=== PATIENT | female | born 1930 | race Caucasian/White ===

== ENCOUNTER 2016-12-11 14:13 | Inpatient (IN) | payer OTHER ==
[2016-12-11 15:24] LABS: BASOPHIL 0.7 % (0-2.0); MCH 29.7 pg (25.7-33.7); MCHC 33.1 g/dl (32.0-36.0); MEAN CELL VOLUME 89.6 fl (80-96); MEAN PLT VOLUME 9.5 fl (7.5-11.1); NEUTROPHILS 70.3 % (42.8-82.8); PLATELET COUNT 117 K/MM3 (134-434); RDW 14.9 % (11.6-15.6); WHITE BLOOD COUNT 6.7 K/mm3 (4.0-10.0)
--- NOTE | 2016-12-11 15:28 | PDOC ---
History of Present Illness - General History Source: Patient, Family - History of Present Illness Initial Comments: 12/11/16 15:34 86 y/o F with a PMHx of DM, asthma, CVA, dementia, thyroid disease, and depression presents to the ED with bilateral lower leg weakness. Per daughter, patient was with her aide and was near syncope. She complains of bilateral knee pain and abrasions. Patients daughter reports the patient has a history of UTIs. Denies fever, chills, nausea, vomiting, diarrhea. PCP: Dr. Barajas Neurologist: Dr. Vee Past Surgeries: right knee, right ankle <Jolene Hernandez - Last Filed: 12/11/16 15:34> <Hafsa Adams - Last Filed: 12/12/16 20:26> - General Chief Complaint: Syncope/Near Syncope Stated Complaint: SYNCOPY Time Seen by Provider: 12/11/16 14:41 Past History <Jolene Hernandez - Last Filed: 12/11/16 15:34> - Past Medical History Anemia: No Asthma: Yes Cancer: No Cardiac Disorders: Yes (BLOOD CLOTS) CVA: Yes COPD: No CHF: No Dementia: Yes Diabetes: Yes (NIIDM) GI Disorders: Yes (CONSTIPATION, HX OF DUODENAL ULCER) Disorders: No HTN: No Hypercholesterolemia: No Liver Disease: No Suicide Attempt (Hx): No Seizures: No Thyroid Disease: Yes - Surgical History Abdominal Surgery: No Appendectomy: No Cardiac Surgery: Yes (FILTER FOR BLOOD CLOTS TO LEFT GROIN) Cholecystectomy: No Lung Surgery: No Neurologic Surgery: No Orthopedic Surgery: Yes (RT LEG SURGERY FROM FALL) - Psycho/Social/Smoking Cessation Hx Anxiety: No Suicidal Ideation: No Smoking Status: No Smoking History: Never smoked Have you smoked in the past 12 months: No Number of Cigarettes Smoked Daily: 0 Information on smoking cessation initiated: No Hx Alcohol Use: No Drug/Substance Use Hx: No Substance Use Type: None Hx Substance Use Treatment: No <Hafsa Adams - Last Filed: 12/12/16 20:26> - Past Medical History Allergies/Adverse Reactions: Allergies Allergy/AdvReac Type Severity Reaction Status Date / Time egg [Egg] Allergy Mild Hives Verified 12/11/16 14:52 Egg Derived [Egg/Poultry] Allergy Verified 12/11/16 14:52 Home Medications: Ambulatory Orders Atorvastatin Ca [Lipitor] 40 mg PO HS 03/17/13 Levothyroxine [Synthroid -] 62.5 mcg PO DAILY 03/17/13 Metformin HCl [Glucophage -] 500 mg PO DAILY 03/17/13 Olanzapine [Olanzapine Odt] 1.25 mg PO DAILY 03/17/13 Omeprazole [Prilosec (RX)] 20 mg PO DAILY 03/17/13 Polyethylene Glycol 3350 [Miralax 255 gm Btl -] 17 gm PO DAILY 03/17/13 Ammonium Lactate Lotion [Lac-Hydrin 12] 1 applic TP ASDIR 12/11/16 Clotrimazole [Lotrimin -] 1 applic TP DAILY 12/11/16 Meclizine HCl 12.5 mg PO DAILY 12/11/16 Memantine HCl 10 mg PO DAILY 12/11/16 Oxybutynin Chloride 5 mg PO DAILY 12/11/16 Warfarin Sodium [Coumadin] 3 mg PO HS 12/11/16 Docusate Sodium [Colace -] 100 mg PO DAILY #30 capsule 12/12/16 Sennosides [Senna] 8.6 mg PO HS #30 tablet 12/12/16 Review of Systems - Review of Systems Comments:: 12/11/16 15:34 GENERAL/CONSTITUTIONAL: No fever or chills. HEAD, EYES, EARS, NOSE AND THROAT: No change in vision. No ear pain or discharge. No sore throat. CARDIOVASCULAR: No chest pain or shortness of breath. RESPIRATORY: No cough, wheezing, or hemoptysis. GASTROINTESTINAL: No nausea, vomiting, diarrhea or constipation. GENITOURINARY: No dysuria, frequency, or change in urination. MUSCULOSKELETAL: (+) bilateral knee pain. No neck or back pain. SKIN: (+) bilateral knee abrasions. No rash NEUROLOGIC: (+) bilateral lower leg weakness, near syncope. No headache, vertigo. ENDOCRINE: No increased thirst. No abnormal weight change. HEMATOLOGIC/LYMPHATIC: No anemia, easy bleeding, or history of blood clots. ALLERGIC/IMMUNOLOGIC: No hives or skin allergy. <Jolene Hernandez - Last Filed: 12/11/16 15:34> *Physical Exam - Vital Signs Last Vital Signs Temp Pulse Resp BP Pulse Ox 65 18 99/55 98 12/11/16 15:33 12/11/16 15:33 12/11/16 15:33 12/11/16 15:33 <Jolene Hernandez - Last Filed: 12/11/16 15:34> - Vital Signs Last Vital Signs Temp Pulse Resp BP Pulse Ox 74 18 99/50 92 L 12/11/16 14:42 12/11/16 14:42 12/11/16 14:42 12/11/16 14:42 - Physical Exam Comments: GENERAL: Awake, alert, and fully oriented, in no acute distress HEAD: No signs of trauma EYES: PERRLA, EOMI, sclera anicteric, conjunctiva clear ENT: Auricles normal inspection, hearing grossly normal, nares patent, oropharynx clear without exudates. Moist mucosa NECK: Normal ROM, supple, no lymphadenopathy, JVD, or masses LUNGS: Breath sounds equal, clear to auscultation bilaterally. No wheezes, and no crackles HEART: Regular rate and rhythm, normal S1 and S2, no murmurs, rubs or gallops ABDOMEN: Soft, nontender, normoactive bowel sounds. No guarding, no rebound. No masses EXTREMITIES: +Abrasions to the B/L anterior knees. Slight LCL laxity on the R side. Remainder of extremities with normal range of motion, no edema. No clubbing or cyanosis. No cords, erythema, or tenderness NEUROLOGICAL: Cranial nerves II through XII grossly intact. Normal speech. Motor and sensation intact. SKIN: Warm, Dry, normal turgor, no rashes or lesions noted. <Hafsa Adams - Last Filed: 12/12/16 20:26> ED Treatment Course - LABORATORY CBC & Chemistry Diagram: 12/11/16 15:16 12/11/16 15:16 - ADDITIONAL ORDERS Additional order review: 12/11/16 15:16 RBC 3.90 MCV 89.6 MCHC 33.1 RDW 14.9 MPV 9.5 Neutrophils % 70.3 Lymphocytes % 18.8 D Monocytes % 8.2 Eosinophils % 2.0 Basophils % 0.7 <Jolene Hernandez - Last Filed: 12/11/16 15:34> - LABORATORY CBC & Chemistry Diagram: 12/12/16 06:00 12/12/16 06:00 - RADIOLOGY Radiology Studies Ordered: Category Date Time Status CHEST X-RAY PORTABLE* [RAD] Stat Radiology 12/11/16 14:47 Ordered <Hafsa Adams - Last Filed: 12/12/16 20:26> Medical Decision Making - Medical Decision Making 12/11/16 17:[address] Campbell, awaiting UA. Will plan for admission to [facility] for syncope. <Hafsa Adams - Last Filed: 12/12/16 20:26> *DC/Admit/Observation/Transfer - Attestations Scribe Attestion: 12/11/16 15:35 Documentation prepared by Jolene Hernandez, acting as medical delivery technician for Hafsa Adams. <Jolene Hernandez - Last Filed: 12/11/16 15:34> <Hafsa Adams - Last Filed: 12/12/16 20:26> Diagnosis at time of Disposition: Syncope Qualifiers: Syncope type: unspecified Qualified Code(s): R55 - Syncope and collapse - Discharge Dispostion Disposition: HOME Condition at time of disposition: Stable - Prescriptions
[2016-12-11 15:41] LABS: INR 3.66 (0.82-1.09); PROTHROMBIN TIME (PATIENT) 41.3 SEC (9.98-11.88)
[2016-12-11 15:54] LABS: ALBUMIN 3.4 g/dl (3.4-5.0); ANION GAP 9 (8-16); CALCIUM 7.8 mg/dL (8.5-10.1); CO2 27 mmol/L (21-32); GLUCOSE,RANDOM 105 mg/dL (74-106); SGOT/AST 19 U/L (15-37); SGPT/ALT 26 U/L (12-78)
[2016-12-11 15:58] LABS: ALK PHOS 76 U/L (45-117); BILIRUBIN,TOTAL 0.8 mg/dL (0.2-1.0); CPK 131 IU/L (26-192); TOT PROT 6.3 g/dl (6.4-8.2); TROPONIN I 0.02 ng/ml (0.00-0.05)
[2016-12-11 16:51] LABS: URINE APPEARANCE CLEAR; URINE BILIRUBIN NEGATIVE (NEGATIVE); URINE BLOOD NEGATIVE (NEGATIVE); URINE COLOR STRAW; URINE GLUCOSE (UA) NEGATIVE (NEGATIVE); URINE KETONE NEGATIVE (NEGATIVE); URINE LEUK ESTERASE NEGATIVE (NEGATIVE); URINE NITRITE NEGATIVE (NEGATIVE); URINE PROTEIN NEGATIVE (NEGATIVE); URINE UROBILINOGEN NEGATIVE mg/dL (0.2-1.0)
[2016-12-11] MEDS ORDERED: SODIUM CHLORIDE 1,000 ML IV STA (17:00)
[2016-12-11] MEDS ORDERED: ALBUTEROL SO4 2.5/IPRATROPIUM 0.5 INH SOL 3 ML VIAL.NEB. NEB ONE ×2 (19:43→20:33)
--- NOTE | 2016-12-11 19:59 | PDOC ---
*Physical Exam - Vital Signs Last Vital Signs Temp Pulse Resp BP Pulse Ox 97.9 F 89 26 H 113/70 98 12/11/16 18:46 12/11/16 19:50 12/11/16 19:50 12/11/16 19:50 12/11/16 19:50 ED Treatment Course - LABORATORY CBC & Chemistry Diagram: 12/11/16 15:16 12/11/16 15:16 - ADDITIONAL ORDERS Additional order review: Laboratory Results 12/11/16 12/11/16 12/11/16 16:35 15:16 15:16 INR 3.66 H D Sodium 142 Potassium 4.2 Chloride 106 Carbon Dioxide 27 Anion Gap 9 BUN 17 Creatinine 1.0 Creat Clearance w eGFR 52.45 Random Glucose 105 Calcium 7.8 L Total Bilirubin 0.8 AST 19 ALT 26 D Alkaline Phosphatase 76 D Creatine Kinase 131 Troponin I 0.02 Total Protein 6.3 L Albumin 3.4 Urine Color Straw Urine Appearance Clear Urine pH 8.0 D Ur Specific [place] 1.010 Urine Protein Negative Urine Glucose (UA) Negative Urine Ketones Negative Urine Blood Negative Urine Nitrite Negative Urine Bilirubin Negative Urine Urobilinogen Negative Ur Leukocyte Esterase Negative 12/11/16 15:16 RBC 3.90 MCV 89.6 MCHC 33.1 RDW 14.9 MPV 9.5 Neutrophils % 70.3 Lymphocytes % 18.8 D Monocytes % 8.2 Eosinophils % 2.0 Basophils % 0.7 - RADIOLOGY Radiology Studies Ordered: Category Date Time Status CXRPORT [CHEST X-RAY PORTABLE*] [RAD] Stat Radiology 12/11/16 19:31 Taken - Medications Given in the ED: ED Medications Discontinued Medications Generic Name Dose Route Start Last Admin Trade Name Freq PRN Reason Stop Dose Admin Sodium Chloride 1,000 mls @ 1,000 mls/hr 12/11/16 17:00 12/11/16 17:46 Normal Saline - IV 12/11/16 17:59 1,000 mls/hr ASDIR STA Administration Medical Decision Making - Medical Decision Making 12/11/16 21:25 Pt signed out to me by Dr. Admas pending admission for syncope. Patient had an acute episode of shortness of breath with desaturation to 89% on room air and tachypnea into the 30's. + small st depressions in the lateral leads. Resolved with duonebs. Repeat CXR shows no evidence of fluid overload. Will admit to medicine. *DC/Admit/Observation/Transfer Diagnosis at time of Disposition: Syncope Qualifiers: Syncope type: unspecified Qualified Code(s): R55 - Syncope and collapse - Discharge Dispostion Admit: Yes Decision to Admit order Date/Time: 12/11/16 19:59 12/11/16 20:00
[2016-12-11] MEDS ORDERED: ALBUTEROL SO4 0.083% IH SOL 2.5 MG/3 ML VIAL.NEB. NEB PRN (21:05)
--- NOTE | 2016-12-11 21:08 | HP ---
CHIEF COMPLAINT: " Vertigo and I nearly fainted " PCP: Dr. Howell HISTORY OF PRESENT ILLNESS: Patient is a 86 year old cypriot speaking female with significant past medical history of DM, Asthma, CVA, Dementia, thyroid disease, depression, Duodenal ulcers presented to the ED with the chief complaint of "vertigo and I nearly fainted". As per the patients daughter, patient has been complaining of vertigo (room spinning) with dizziness since the past week. Was seen by Dr. Vee, who prescribed Meclizine 12.5 mg PO BID. Patient started having abdominal pain after taking Meclizine hence started taking it only once a day. Today, when patient was walking with a cane, assisted by health aid, had weakness of the lower extremities, had vertigo, ringing sensation in her ears and her " legs gave up", landed on her knees but didn't hit her head. Denies LOC, head trauma, tingling, numbness. Patient also complaints of chest pain, located centrally, 2-3/10 in intensity, non radiating associated with nausea and palpitations during the vertigo. But now it has resolved. Patient also mentions she had constipation for which she was taking Miralax, last bowel movement was today. Bladder habit normal. Sleep.Appetite normal. Patient has a 12 hr health aid during the day and at night stays alone. Can ambulate with a cane unassisted. In the ED, initially her vitals were stable. But shortly after she was admitted , had shortness of breath, saturation was 89-90 % in RA, repeat EKG showed slight ST depression in the lateral leads. She was placed on Venti and saturation improved. Pending repeat EKG. ER course was notable for: (1) Afebrile, initally hypotensive, INR 3.66 (2) CXR, Knee x-ray (3) IV NS 1L Recent Travel: [place] PAST MEDICAL HISTORY: DM, Asthma, CVA, Demtnia, thyroid diesease, depression, Duodenal ulcers PAST SURGICAL HISTORY: Knee and ankle surgery Social History: Smoking: Denies Alcohol: Denies Drugs: Denies Family History: Unknown. Allergies egg [Egg] Allergy (Mild, Verified 12/11/16 14:52) Hives Egg Derived [Egg/Poultry] Allergy (Verified 12/11/16 14:52) HOME MEDICATIONS: Home Medications Medication Instructions Recorded Atorvastatin Ca [Lipitor] 40 mg PO HS 03/17/13 Levothyroxine [Synthroid -] 62.5 mcg PO DAILY 03/17/13 Metformin HCl [Glucophage -] 500 mg PO DAILY 03/17/13 Olanzapine [Olanzapine Odt] 1.25 mg PO DAILY 03/17/13 Omeprazole [Prilosec (RX)] 20 mg PO DAILY 03/17/13 Polyethylene Glycol 3350 [Miralax 17 gm PO DAILY 03/17/13 255 gm Btl -] Ammonium Lactate Lotion 1 applic TP ASDIR 12/11/16 [Lac-Hydrin 12% Lotion -] Clotrimazole [Lotrimin 1% Cream -] 1 applic TP DAILY 12/11/16 Meclizine HCl 12.5 mg PO DAILY 12/11/16 Memantine HCl 10 mg PO DAILY 12/11/16 Oxybutynin Chloride 5 mg PO DAILY 12/11/16 Warfarin Sodium [Coumadin] 3 mg PO HS 12/11/16 REVIEW OF SYSTEMS CONSTITUTIONAL: Absent: fever, chills, diaphoresis, generalized weakness, malaise, loss of appetite, weight change HEENT: Absent: rhinorrhea, nasal congestion, throat pain, throat swelling, difficulty swallowing, mouth swelling, ear pain, eye pain, visual changes CARDIOVASCULAR: Present: Chest pain, palpitation. Absent: syncope,irregular heart rate, lightheadedness, peripheral edema RESPIRATORY: Absent: cough, shortness of breath, dyspnea with exertion, orthopnea, wheezing, stridor, hemoptysis GASTROINTESTINAL: Absent: abdominal pain, abdominal distension, nausea, vomiting, diarrhea, constipation, melena, hematochezia GENITOURINARY: Absent: dysuria, frequency, urgency, hesitancy, hematuria, flank pain, genital pain MUSCULOSKELETAL: Absent: myalgia, arthralgia, joint swelling, back pain, neck pain SKIN: Absent: rash, itching, pallor HEMATOLOGIC/IMMUNOLOGIC: Absent: easy bleeding, easy bruising, lymphadenopathy, frequent infections ENDOCRINE: Absent: unexplained weight gain, unexplained weight loss, heat intolerance, cold intolerance NEUROLOGIC: Present: Vertigo, dizziness. Absent: headache, focal weakness or paresthesias, unsteady gait, seizure, mental status changes, bladder or bowel incontinence PSYCHIATRIC: Absent: anxiety, depression, suicidal or homicidal ideation, hallucinations. PHYSICAL EXAMINATION Vital Signs - 24 hr 12/11/16 12/11/16 12/11/16 14:42 15:28 15:33 Temperature Pulse Rate 74 Pulse Rate [ 65 Apical] Respiratory 18 18 Rate Blood Pressure 99/50 Blood Pressure 99/55 [Left Arm] O2 Sat by Pulse 92 L 95 98 Oximetry (%) 12/11/16 12/11/16 18:46 19:50 Temperature 97.9 F Pulse Rate Pulse Rate [ 60 89 Apical] Respiratory 18 26 H Rate Blood Pressure Blood Pressure 103/49 113/70 [Left Arm] O2 Sat by Pulse 95 98 Oximetry (%) GENERAL: Elderly female, Awake, alert, and oriented x 1 (not oriented to year and person), in no acute distress. HEAD: Normal with no signs of trauma. EYES: EOM intact, no pallor or icterus, no nystagmus. EARS, NOSE, THROAT: Ears normal. Moist mucous membranes. NECK: Supple. LUNGS: B/L Breath sounds equal, clear to auscultation bilaterally. No wheezes, and no crackles. No accessory muscle use. HEART: Regular rate and rhythm, normal S1 and S2 with loud systolic murmur. ABDOMEN: Soft, nontender, not distended, normoactive bowel sounds, no guarding, no rebound, no masses. No hepatomegaly or splenomegaly. MUSCULOSKELETAL: Normal range of motion at all joints. No bony deformities or tenderness. No CVA tenderness. UPPER EXTREMITIES: 2+ pulses, warm, well-perfused. No cyanosis. No clubbing. No peripheral edema. LOWER EXTREMITIES: 2+ pulses, warm, well-perfused. No calf tenderness. No peripheral edema. Abrasions on the b/l knee caps. NEUROLOGICAL: No facial droop, power 5/5 in all extremities, reflexes intact, Cranial nerves II-XII intact. Normal speech. Gait not observed. PSYCHIATRIC: Cooperative. Good eye contact. Appropriate mood and affect. SKIN: Warm, dry, normal turgor, no rashes or lesions noted, normal capillary refill. Laboratory Results - last 24 hr 12/11/16 12/11/16 12/11/16 15:16 15:16 15:16 WBC 6.7 RBC 3.90 Hgb 11.6 Hct 34.9 MCV 89.6 MCH 29.7 MCHC 33.1 RDW 14.9 Plt Count 117 L MPV 9.5 Neutrophils % 70.3 Lymphocytes % 18.8 D Monocytes % 8.2 Eosinophils % 2.0 Basophils % 0.7 INR 3.66 H D Sodium 142 Potassium 4.2 Chloride 106 Carbon Dioxide 27 Anion Gap 9 BUN 17 Creatinine 1.0 Creat Clearance w eGFR 52.45 Random Glucose 105 Calcium 7.8 L Total Bilirubin 0.8 AST 19 ALT 26 D Alkaline Phosphatase 76 D Creatine Kinase 131 Troponin I 0.02 Total Protein 6.3 L Albumin 3.4 Urine Color Urine Appearance Urine pH Ur Specific [place] Urine Protein Urine Glucose (UA) Urine Ketones Urine Blood Urine Nitrite Urine Bilirubin Urine Urobilinogen Ur Leukocyte Esterase 12/11/16 16:35 WBC RBC Hgb Hct MCV MCH MCHC RDW Plt Count MPV Neutrophils % Lymphocytes % Monocytes % Eosinophils % Basophils % INR Sodium Potassium Chloride Carbon Dioxide Anion Gap BUN Creatinine Creat Clearance w eGFR Random Glucose Calcium Total Bilirubin AST ALT Alkaline Phosphatase Creatine Kinase Troponin I Total Protein Albumin Urine Color Straw Urine Appearance Clear Urine pH 8.0 D Ur Specific [place] 1.010 Urine Protein Negative Urine Glucose (UA) Negative Urine Ketones Negative Urine Blood Negative Urine Nitrite Negative Urine Bilirubin Negative Urine Urobilinogen Negative Ur Leukocyte Esterase Negative ASSESSMENT/PLAN: Patient is a 86 year old Amharic speaking female with significant past medical history of DM, Asthma, CVA, Dementia, thyroid disease, depression, Duodenal ulcers presented to the ED with the chief complaint of vertigo and nearly fainted. # Vertigo most likely BPPV Could also be due to dehydration came in with Near fall, associated with palpitations and nausea Her Neurologist recently started on Meclizine BID due to vertigo but because she had abdominal pain, she is taking 12.5mg Daily On arrival, she was afebrile, hypotensive which improved Electrolytes are within normal limits, full neuro exam was normal. Admitted in tele/obs Continuous cardiac monitoring Continue Meclizine 12.5 mg Gentle hydration # Atypical chest pain Non reproducible, associated with palpitation Troponin x 2 negative, will repeat a third troponin in the morning. Stress test done in 2012 showed EF 70 % ECHo done in 2013 showed Severe , JAG 0.5 cm2 Will repeat an ECHo in am, now has loud systolic murmur # Diabetes Mellitus Hold Metformin. A1c ordered for am ISS Finger stick glucose monitoring Watch for hypoglycemic episodes. # Supratherapeutic INR INR 3.66, on warfarin 3mg PO HS, will hold the coumadin one dose. Repeat INR in the morning. # Dementia Continue Memantine 10mg HS Patient was given Galantamine outpatient but developed rash on the cheeks so it was stopped Aspiration and fall precautions # Hypothyroidism Continue Synthroid 62.5 mg # Hyperlipidemia Continue Atorvastain 40mg # FEN IV NS @ 75mls/hr Electrolytes wnl Diabetic diet # Prophylaxis For DVT: Heparin 5000 U sq For GI: On Omeprazole # Code Status: Full Code # Dispo: Placed on observation. Duration of stay 1-2 days. Illness, Investigation and Plan of care explained to the patient and her daughter. They verbalized understanding. Case seen and discussed with Dr. Champion. Visit type - Emergency Visit Emergency Visit: Yes ED Registration Date: 12/12/16 Care time: The patient presented to the Emergency Department on the above date and was hospitalized for further evaluation of their emergent condition. - New Patient This patient is new to me today: Yes Date on this admission: 12/22/16 - Critical Care Critical Care patient: No
[2016-12-11] MEDS ORDERED: PATIENT'S OWN MEDICATION (NON-FORMULARY) (Omeprazole Pediatric Solution 20 MG) PO SCH (21:15)
[2016-12-11] MEDS ORDERED: AMMONIUM LACTATE 12% LOTION 225 GM BOTTLE TP SCH (21:15)
[2016-12-11] MEDS ORDERED: SODIUM CHLORIDE 1,000 ML IV SCH (21:15)
[2016-12-11 21:16] LABS: TROPONIN I 0.04 ng/ml (0.00-0.05)
[2016-12-11] MEDS ORDERED: ATORVASTATIN CA 40 MG TABLET (FP) PO SCH (22:00)
[2016-12-12] MEDS ORDERED: SODIUM CHLORIDE 1,000 ML IV SCH (00:17)
[2016-12-12] MEDS: INSULIN SLIDING SCALE (NOVOLOG) 1 VIAL SQ SCH ×4 (00:22→17:28)
[2016-12-12 02:13] VITALS: BMI 28.7
--- NOTE | 2016-12-12 05:56 | PN ---
Teaching Attending Note Name of Resident: Ally James ATTENDING PHYSICIAN STATEMENT I saw and evaluated the patient. I reviewed the resident's note and discussed the case with the resident. I agree with the resident's findings and plan as documented. SUBJECTIVE: 86 y/o F with h/o vertigo on meclizine presented to ED after fall and dizziness. OBJECTIVE: Vital Signs Temperature 97.8 F 12/12/16 02:47 Pulse Rate 63 12/12/16 02:47 Respiratory Rate 20 12/12/16 02:47 Blood Pressure 85/47 12/12/16 02:47 O2 Sat by Pulse Oximetry (%) 97 12/11/16 23:00 HEENT: NC, PERRLA, EOMI, no nystagmus CVS: RRR, S1, S2 Lungs: CTA Abd: Soft, NT, BS+, ND, No organomegaly Ext: R>L hand with ulnar deviation, full ROM, neuro: CN2-12 CBCD WBC 6.7 K/mm3 (4.0-10.0) 12/11/16 15:16 RBC 3.90 M/mm3 (3.60-5.2) 12/11/16 15:16 Hgb 11.6 GM/dL (10.7-15.3) 12/11/16 15:16 Hct 34.9 % (32.4-45.2) 12/11/16 15:16 MCV 89.6 fl (80-96) 12/11/16 15:16 MCHC 33.1 g/dl (32.0-36.0) 12/11/16 15:16 RDW 14.9 % (11.6-15.6) 12/11/16 15:16 Plt Count 117 K/MM3 (134-434) L 12/11/16 15:16 MPV 9.5 fl (7.5-11.1) 12/11/16 15:16 CMP Sodium 142 mmol/L (136-145) 12/11/16 15:16 Potassium 4.2 mmol/L (3.5-5.1) 12/11/16 15:16 Chloride 106 mmol/L (98-107) 12/11/16 15:16 Carbon Dioxide 27 mmol/L (21-32) 12/11/16 15:16 Anion Gap 9 (8-16) 12/11/16 15:16 BUN 17 mg/dL (7-18) 12/11/16 15:16 Creatinine 1.0 mg/dL (0.55-1.02) 12/11/16 15:16 Creat Clearance w eGFR 52.45 (>60) 12/11/16 15:16 Random Glucose 105 mg/dL (74-106) 12/11/16 15:16 Calcium 7.8 mg/dL (8.5-10.1) L 12/11/16 15:16 Total Bilirubin 0.8 mg/dL (0.2-1.0) 12/11/16 15:16 AST 19 U/L (15-37) 12/11/16 15:16 ALT 26 U/L (12-78) D 12/11/16 15:16 Alkaline Phosphatase 76 U/L (45-117) D 12/11/16 15:16 Total Protein 6.3 g/dl (6.4-8.2) L 12/11/16 15:16 Albumin 3.4 g/dl (3.4-5.0) 12/11/16 15:16 CARDIAC ENZYMES Creatine Kinase 126 IU/L (26-192) 12/11/16 20:18 Troponin I 0.04 ng/ml (0.00-0.05) 12/11/16 20:18 ASSESSMENT AND PLAN: Syncope with Fall Fall risk precautions, PT consult for gait Continue home medications
[2016-12-12] MEDS ORDERED: HEPARIN NA (PORCINE) 5,000 UNITS/ML 1ML VIAL SQ SCH ×2 (06:00→10:00)
[2016-12-12] MEDS: ALBUTEROL SO4 2.5/IPRATROPIUM 0.5 INH SOL 3 ML VIAL.NEB. NEB SCH ×4 (06:14→17:04)
[2016-12-12] MEDS ORDERED: LEVOTHYROXINE NA 25 MCG TABLET (FP) ONE (06:41)
[2016-12-12] MEDS ORDERED: LEVOTHYROXINE NA 50 MCG TABLET (FP) ONE (06:41)
[2016-12-12] MEDS ORDERED: LEVOTHYROXINE PO SCH (07:00)
[2016-12-12 08:16] LABS: BASOPHIL 0.5 % (0-2.0); EOSINOPHIL 2.3 % (0-4.5); MCH 29.6 pg (25.7-33.7); MEAN CELL VOLUME 89.6 fl (80-96); MEAN PLT VOLUME 9.8 fl (7.5-11.1); NEUTROPHILS 62.6 % (42.8-82.8); PLATELET COUNT 120 K/MM3 (134-434); RDW 15.2 % (11.6-15.6); WHITE BLOOD COUNT 6.8 K/mm3 (4.0-10.0)
[2016-12-12 08:33] LABS: INR 2.8 (0.82-1.09); PROTHROMBIN TIME (PATIENT) 31.4 SEC (9.98-11.88)
[2016-12-12 08:38] LABS: ALBUMIN 3.5 g/dl (3.4-5.0); CREATININE 0.9 mg/dL (0.55-1.02); SGOT/AST 17 U/L (15-37); SGPT/ALT 25 U/L (12-78)
[2016-12-12 08:47] LABS: ALK PHOS 88 U/L (45-117); ANION GAP 8 (8-16); CALCIUM 8.4 mg/dL (8.5-10.1); CHOLESTEROL 95 mg/dL (50-200); CO2 26 mmol/L (21-32); GLUCOSE,RANDOM 84 mg/dL (74-106); MAGNESIUM 2.2 mg/dL (1.8-2.4); PHOSPHOROUS 3.9 mg/dL (2.5-4.9); TOT PROT 6.8 g/dl (6.4-8.2)
--- NOTE | 2016-12-12 09:05 | EKG ---
Test Reason : Blood Pressure : / mmHG Vent. Rate : 074 BPM Atrial Rate : 074 BPM P-R Int : 230 ms QRS Dur : 100 ms QT Int : 418 ms P-R-T Axes : 037 -35 124 degrees QTc Int : 463 ms SINUS RHYTHM WITH 1ST DEGREE A-V BLOCK LEFT AXIS DEVIATION INCOMPLETE RIGHT BUNDLE BRANCH BLOCK LEFT VENTRICULAR HYPERTROPHY WITH REPOLARIZATION ABNORMALITY CANNOT RULE OUT SEPTAL INFARCT , AGE UNDETERMINED ABNORMAL ECG Confirmed by FILOMENA ZHOU MD ([id number]) on 12/12/2016 9:05:14 AM Referred By: Confirmed By:FILOMENA ZHOU MD
[2016-12-12] MEDS ORDERED: CLOTRIMAZOLE 1% CREAM 15 GM TUBE TP SCH (10:00)
[2016-12-12] MEDS ORDERED: MEMANTINE HCL 10 MG TABLET (FP) PO SCH (10:00)
[2016-12-12] MEDS ORDERED: MECLIZINE HCL 12.5 MG TABLET PO SCH (10:00)
[2016-12-12] MEDS ORDERED: LEVOTHYROXINE NA 25 MCG TABLET (FP) PO SCH (10:00)
[2016-12-12] MEDS ORDERED: OXYBUTYNIN CHLORIDE 5 MG TABLET PO SCH (10:00)
--- NOTE | 2016-12-12 14:22 | PN ---
Physical Exam: SUBJECTIVE: Patient seen and examined. She still c/o of some dizziness. Denies sob, cp. OBJECTIVE: Vital Signs Period Temp Pulse Resp BP Sys/[place] Pulse Ox Last 24 Hr 97.8 F-98.2 F 60-90 16-20 85-151/40-88 95-97 PE Neuro: Pulm: CV: Abd: Ext: Laboratory Results - last 24 hr 12/12/16 12/12/16 12/12/16 00:22 06:00 06:00 WBC 6.8 RBC 4.18 Hgb 12.4 Hct 37.5 MCV 89.6 MCH 29.6 MCHC 33.0 RDW 15.2 Plt Count 120 L MPV 9.8 Neutrophils % 62.6 Lymphocytes % 26.6 D Monocytes % 8.0 Eosinophils % 2.3 Basophils % 0.5 INR Sodium 144 Potassium 4.1 Chloride 110 H Carbon Dioxide 26 Anion Gap 8 BUN 14 Creatinine 0.9 Creat Clearance w eGFR 59.23 POC Glucometer 103 Random Glucose 84 Hemoglobin A1c % Calcium 8.4 L Phosphorus 3.9 D Magnesium 2.2 Total Bilirubin 1.0 D AST 17 ALT 25 Alkaline Phosphatase 88 Troponin I Total Protein 6.8 Albumin 3.5 Triglycerides 110 Cholesterol 95 Total LDL Cholesterol 40 HDL Cholesterol 40 12/12/16 12/12/16 12/12/16 06:00 06:00 06:00 WBC RBC Hgb Hct MCV MCH MCHC RDW Plt Count MPV Neutrophils % Lymphocytes % Monocytes % Eosinophils % Basophils % INR 2.80 H Sodium Potassium Chloride Carbon Dioxide Anion Gap BUN Creatinine Creat Clearance w eGFR POC Glucometer Random Glucose Hemoglobin A1c % 5.9 D Calcium Phosphorus Magnesium Total Bilirubin AST ALT Alkaline Phosphatase Troponin I 0.03 Total Protein Albumin Triglycerides Cholesterol Total LDL Cholesterol HDL Cholesterol Active Medications Generic Name Dose Route Start Last Admin Trade Name Freq PRN Reason Stop Dose Admin Albuterol Sulfate 1 amp 12/11/16 21:05 Ventolin 0.083% Nebulizer Soln - NEB Q6H PRN WHEEZING Albuterol/Ipratropium 1 amp 12/12/16 00:00 12/12/16 11:19 Duoneb - NEB 1 amp QIDR DALLIN Administration Atorvastatin Calcium 40 mg 12/11/16 22:00 12/12/16 00:20 Lipitor - PO 40 mg HS DALLIN Administration Clotrimazole 1 applic 12/12/16 10:00 Lotrimin 1% Cream - TP DAILY DALLIN Heparin Sodium (Porcine) 5,000 unit 12/12/16 10:00 12/12/16 10:28 Heparin - SQ 5,000 unit BID DALLIN Administration Sodium Chloride 1,000 mls @ 75 mls/hr 12/12/16 00:17 12/12/16 06:53 Normal Saline - IV 75 mls/hr ASDIR DALLIN Administration Insulin Aspart 0 vial 12/11/16 22:00 12/12/16 12:19 Novolog Vial Sliding Scale - SQ Not Given ACHS DALLIN Protocol Lactic Acid 1 applic 12/11/16 21:15 12/12/16 00:21 Lac-Hydrin 12 TP Not Given ASDIR DALLIN Levothyroxine Sodium 50 mcg/ 62.5 mcg 12/12/16 07:00 12/12/16 06:53 Levothyroxine Sodium 12.5 mcg PO 62.5 mcg DAILY@0700 DALLIN Administration Meclizine HCl 12.5 mg 12/12/16 10:00 12/12/16 10:29 Antivert - PO 12.5 mg DAILY DALLIN Administration Memantine 10 mg 12/12/16 10:00 12/12/16 10:28 Namenda - PO 10 mg DAILY DALLIN Administration Non-Formulary Medication 20 mg 12/11/16 21:15 Omeprazole Pediatric Solution PO DAILY DALLIN Olanzapine 1.25 mg 12/12/16 10:00 Zyprexa Zydis - PO DAILY DALLIN Oxybutynin Chloride 5 mg 12/12/16 10:00 12/12/16 10:29 Ditropan - PO 5 mg DAILY DALLIN Administration ASSESSMENT/PLAN:
--- NOTE | 2016-12-12 15:35 | CON.CARD ---
Consult Consult Specialty:: Cardiology Referred by:: Hospitalist Reason for Consultation:: Cardiac evaluation - History of Present Illness Chief Complaint: Dizziness History of Present Illness: Patient is an 86 year old female of descent with underlying history of diabetes mellitus, hypercholesterolemia, bronchial asthma, cerebrovascular disease and hypertension who presents with complaints of dizziness. Patient apparently had a near fainting spell and fell yesterday. She was seen by Dr. Vee for evaluation of dizziness and was prescribed Meclizine for presumed vertigo. She complained of vague abdominal pain and also intermittent chest discomfort. She denies shortness of breath or palpitations. She denies paroxysmal nocturnal dyspnea or orthopnea. She denies fever or chills. She denies headache. Echocardiography revealed severe aortic valve stenosis and moderate aortic valve regurgitation for which cardiology was consulted for further input. She complained of weakness of lower extremity and states that her legs gave up and landed on her knees. She did not hit her head and denies LOC according to medical record. She is also on anticoagulation for peripheral vascular disease. - History Source History Provided By: Family Member, Medical Record Limitations to Obtaining History: Language Barrier - Past Medical History BAG BAILER: Yes: CVA Cardio/Vascular: Yes: Aortic Insufficiency, Aortic Stenosis, HTN, Hyperlipdemia Pulmonary: Yes: Asthma Endocrine: Yes: Hypothyroidism - Past Surgical History Additional Surgical History: Catheterization - Alcohol/Substance Use Hx Alcohol Use: No - Smoking History Smoking history: Never smoked Have you smoked in the past 12 months: No Aproximately how many cigarettes per day: 0 Home Medications - Allergies Allergies/Adverse Reactions: Allergies Allergy/AdvReac Type Severity Reaction Status Date / Time egg [Egg] Allergy Mild Hives Verified 12/11/16 14:52 Egg Derived [Egg/Poultry] Allergy Verified 12/11/16 14:52 - Home Medications Home Medications: Ambulatory Orders Atorvastatin Ca [Lipitor] 40 mg PO HS 03/17/13 Levothyroxine [Synthroid -] 62.5 mcg PO DAILY 03/17/13 Metformin HCl [Glucophage -] 500 mg PO DAILY 03/17/13 Olanzapine [Olanzapine Odt] 1.25 mg PO DAILY 03/17/13 Omeprazole [Prilosec (RX)] 20 mg PO DAILY 03/17/13 Polyethylene Glycol 3350 [Miralax 255 gm Btl -] 17 gm PO DAILY 03/17/13 Ammonium Lactate Lotion [Lac-Hydrin 12% Lotion -] 1 applic TP ASDIR 12/11/16 Clotrimazole [Lotrimin 1% Cream -] 1 applic TP DAILY 12/11/16 Meclizine HCl 12.5 mg PO DAILY 12/11/16 Memantine HCl 10 mg PO DAILY 12/11/16 Oxybutynin Chloride 5 mg PO DAILY 12/11/16 Warfarin Sodium [Coumadin] 3 mg PO HS 12/11/16 Family Disease History - Family Disease History Other Family History: History of coronary artery disease and HTN Review of Systems - Review of Systems Constitutional: reports: Weakness. denies: Chills, Fever Cardiovascular: reports: Chest Pain. denies: Palpitations, Shortness of Breath Respiratory: denies: Cough, Hemoptysis, Orthopnea, PND, SOB, SOB on Exertion Gastrointestinal: denies: Abdominal Pain, Constipation, Diarrhea, Melena, Nausea , Rectal Bleeding, Vomiting Musculoskeletal: denies: Joint Pain Neurological: reports: Dizziness. denies: Headache, Seizure, Syncope Vital Signs: Vital Signs Temperature 98.7 F 12/12/16 14:00 Pulse Rate 67 12/12/16 14:00 Respiratory Rate 20 12/12/16 14:00 Blood Pressure 105/42 12/12/16 14:00 O2 Sat by Pulse Oximetry (%) 95 12/12/16 10:15 Neck: Yes: Supple Respiratory: Yes: Regular, CTA Bilaterally Gastrointestinal: Yes: Normal Bowel Sounds, Soft. No: Tenderness Cardiovascular: Yes: Regular Rate and Rhythm JVD: No Carotid Bruit: No PMI: Non-Displaced Heart Sounds: Yes: S1, S2. No: Gallop Murmur: Yes: Systolic Murmur (LOPEZ), Grade 1 Edema: No - Other Data Labs, Other Data: CBC, BMP 12/12/16 06:00 12/12/16 06:00 INR, PTT INR 2.80 (0.82-1.09) H 12/12/16 06:00 Troponin, BNP 12/12/16 06:00 Troponin I 0.03 Laboratory Results - last 24 hr 12/11/16 12/11/16 12/11/16 15:16 15:16 16:35 WBC RBC Hgb Hct MCV MCH MCHC RDW Plt Count MPV Neutrophils % Lymphocytes % Monocytes % Eosinophils % Basophils % INR 3.66 H D Sodium 142 Potassium 4.2 Chloride 106 Carbon Dioxide 27 Anion Gap 9 BUN 17 Creatinine 1.0 Creat Clearance w eGFR 52.45 POC Glucometer Random Glucose 105 Hemoglobin A1c % Calcium 7.8 L Phosphorus Magnesium Total Bilirubin 0.8 AST 19 ALT 26 D Alkaline Phosphatase 76 D Creatine Kinase 131 Troponin I 0.02 Total Protein 6.3 L Albumin 3.4 Triglycerides Cholesterol Total LDL Cholesterol HDL Cholesterol Urine Color Straw Urine Appearance Clear Urine pH 8.0 D Ur Specific [place] 1.010 Urine Protein Negative Urine Glucose (UA) Negative Urine Ketones Negative Urine Blood Negative Urine Nitrite Negative Urine Bilirubin Negative Urine Urobilinogen Negative Ur Leukocyte Esterase Negative 12/11/16 12/12/16 12/12/16 20:18 00:22 06:00 WBC 6.8 RBC 4.18 Hgb 12.4 Hct 37.5 MCV 89.6 MCH 29.6 MCHC 33.0 RDW 15.2 Plt Count 120 L MPV 9.8 Neutrophils % 62.6 Lymphocytes % 26.6 D Monocytes % 8.0 Eosinophils % 2.3 Basophils % 0.5 INR Sodium Potassium Chloride Carbon Dioxide Anion Gap BUN Creatinine Creat Clearance w eGFR POC Glucometer 103 Random Glucose Hemoglobin A1c % Calcium Phosphorus Magnesium Total Bilirubin AST ALT Alkaline Phosphatase Creatine Kinase 126 Troponin I 0.04 Total Protein Albumin Triglycerides Cholesterol Total LDL Cholesterol HDL Cholesterol Urine Color Urine Appearance Urine pH Ur Specific [place] Urine Protein Urine Glucose (UA) Urine Ketones Urine Blood Urine Nitrite Urine Bilirubin Urine Urobilinogen Ur Leukocyte Esterase 12/12/16 12/12/16 12/12/16 06:00 06:00 06:00 WBC RBC Hgb Hct MCV MCH MCHC RDW Plt Count MPV Neutrophils % Lymphocytes % Monocytes % Eosinophils % Basophils % INR 2.80 H Sodium 144 Potassium 4.1 Chloride 110 H Carbon Dioxide 26 Anion Gap 8 BUN 14 Creatinine 0.9 Creat Clearance w eGFR 59.23 POC Glucometer Random Glucose 84 Hemoglobin A1c % 5.9 D Calcium 8.4 L Phosphorus 3.9 D Magnesium 2.2 Total Bilirubin 1.0 D AST 17 ALT 25 Alkaline Phosphatase 88 Creatine Kinase Troponin I Total Protein 6.8 Albumin 3.5 Triglycerides 110 Cholesterol 95 Total LDL Cholesterol 40 HDL Cholesterol 40 Urine Color Urine Appearance Urine pH Ur Specific [place] Urine Protein Urine Glucose (UA) Urine Ketones Urine Blood Urine Nitrite Urine Bilirubin Urine Urobilinogen Ur Leukocyte Esterase Sinus rhythm with ST-T wave abnormality Echo: Report Reviewed (Normal LV function, severe , moderate AR, severe MR) Imaging - Results Chest X-ray: Report Reviewed EKG: Report Reviewed Problem List - Problems (1) Near syncope Code(s): R55 - SYNCOPE AND COLLAPSE (2) HTN (hypertension) Code(s): I10 - ESSENTIAL (PRIMARY) HYPERTENSION Qualifiers: Hypertension type: essential hypertension Qualified Code(s): I10 - Essential (primary) hypertension (3) Hypercholesterolemia Code(s): E78.00 - PURE HYPERCHOLESTEROLEMIA, UNSPECIFIED (4) Aortic stenosis Code(s): I35.0 - NONRHEUMATIC AORTIC (VALVE) STENOSIS Qualifiers: Cardiac valve disease etiology: nonrheumatic Qualified Code(s): I35.0 - Nonrheumatic aortic (valve) stenosis (5) Aortic regurgitation Code(s): I35.1 - NONRHEUMATIC AORTIC (VALVE) INSUFFICIENCY Qualifiers: Cardiac valve disease etiology: nonrheumatic Qualified Code(s): I35.1 - Nonrheumatic aortic (valve) insufficiency (6) Mitral regurgitation Code(s): I34.0 - NONRHEUMATIC MITRAL (VALVE) INSUFFICIENCY Qualifiers: Cardiac valve disease etiology: nonrheumatic Qualified Code(s): I34.0 - Nonrheumatic mitral (valve) insufficiency (7) Vertigo Code(s): R42 - DIZZINESS AND GIDDINESS Assessment/Plan 1. Severe aortic valve disease with aortic valve stenosis and regurgitation 2. Severe mitral valve regurgitation and moderate tricuspid valve regurgitation 3. Hypertension 4. Hypercholesterolemia 5. Diabetes mellitus 6. Dizziness due to vertigo 7. Hypothyroidism 8. Peripheral vascular disease PLAN: 1. Continue present therapy. Continue anticoagulation 2. Statin therapy 3. Continue Meclizine 4. Patient will need further evaluation including cardiac catheterization to evaluate degree of aortic valve disease and then be referred for TAVR if is indeed severe or critical - this can be arranged as outpatient Further plans are to follow Henry Ramirez MD
--- NOTE | 2016-12-12 17:12 | DS ---
Physical Exam: SUBJECTIVE: Patient seen and examined. She feels well, she only has dizziness when she stands. Denies cp, sob. family at bedside. OBJECTIVE: Vital Signs Period Temp Pulse Resp BP Sys/Maddox Pulse Ox Last 24 Hr 97.8 F-98.7 F 60-90 16-20 85-151/40-88 95-97 PE Neuro: alert, awake, cn 2-12intact no nystagmus Pulm: CTAB CV: s1 s2 rrr +2/6 systolic murmer Abd: s nt nd + bs Ext: R knee incision healed, no le edema Laboratory Results - last 24 hr 12/12/16 12/12/16 12/12/16 00:22 06:00 06:00 WBC 6.8 RBC 4.18 Hgb 12.4 Hct 37.5 MCV 89.6 MCH 29.6 MCHC 33.0 RDW 15.2 Plt Count 120 L MPV 9.8 Neutrophils % 62.6 Lymphocytes % 26.6 D Monocytes % 8.0 Eosinophils % 2.3 Basophils % 0.5 INR Sodium 144 Potassium 4.1 Chloride 110 H Carbon Dioxide 26 Anion Gap 8 BUN 14 Creatinine 0.9 Creat Clearance w eGFR 59.23 POC Glucometer 103 Random Glucose 84 Hemoglobin A1c % Calcium 8.4 L Phosphorus 3.9 D Magnesium 2.2 Total Bilirubin 1.0 D AST 17 ALT 25 Alkaline Phosphatase 88 Troponin I Total Protein 6.8 Albumin 3.5 Triglycerides 110 Cholesterol 95 Total LDL Cholesterol 40 HDL Cholesterol 40 12/12/16 12/12/16 12/12/16 06:00 06:00 06:00 WBC RBC Hgb Hct MCV MCH MCHC RDW Plt Count MPV Neutrophils % Lymphocytes % Monocytes % Eosinophils % Basophils % INR 2.80 H Sodium Potassium Chloride Carbon Dioxide Anion Gap BUN Creatinine Creat Clearance w eGFR POC Glucometer Random Glucose Hemoglobin A1c % 5.9 D Calcium Phosphorus Magnesium Total Bilirubin AST ALT Alkaline Phosphatase Troponin I 0.03 Total Protein Albumin Triglycerides Cholesterol Total LDL Cholesterol HDL Cholesterol HOSPITAL COURSE: Date of Admission:12/11/16 Date of Discharge: 12/12/16 Minutes to complete discharge: 38 Discharge Summary Reason For Visit: SYNCOPE Current Active Problems Aortic regurgitation (Acute) Aortic stenosis (Acute) HTN (hypertension) (Acute) Hypercholesterolemia (Acute) Mitral regurgitation (Acute) Near syncope (Acute) Syncope (Acute) Vertigo (Acute) Hospital Course: Initial Hospital Course: Briefly, this 86 year old Hebrew speaking female with significant past medical history of DM, Asthma, CVA, Dementia, thyroid disease, depression, Duodenal ulcers presented to the ED with the chief complaint of "vertigo and I nearly fainted". As per the patients daughter, patient has been complaining of vertigo (room spinning) with dizziness since the past week. Was seen by Dr. Vee, who prescribed Meclizine 12.5 mg PO BID. Patient started having abdominal pain after taking Meclizine hence started taking it only once a day. On day of admission pt was walking with a cane, assisted by health aid, had weakness of the lower extremities, had vertigo, ringing sensation in her ears and her " legs gave up", landed on her knees but didn't hit her head. Subsequent Hospital Course/Progress Note/Discharge Summary: Plan: 1. Dizziness - Possible due to vertigo vs severe - ECHO shows Normal LV function, severe aortic valve stenosis , moderate AR, severe MR - Will need further cardiac work up in office and possible TAVR at that time, d/ w dr. ramirez and daughter - Continue Meclizine 2. Atypical chest pain - ACS unlikely, chest pain resolved - trops negative 3. Diabetes Mellitus II - Resume home meds, sugars stable, hgba1c 5.9 4. Supratherapeutic INR - Resume coumadin 3mg hs 5. Dementia - Continue Memantine 10mg HS - patient was given Galantamine outpatient but developed rash on the cheeks so it was stopped 6. Hypothyroidism - Continue Synthroid 62.5 mg 7. Hyperlipidemia - Continue Atorvastain 40mg Dispo: - Home with above plan and follow up - Referral information given to daughter, she is aware and agrees to above plan Condition: Stable - Instructions Diet, Activity, Other Instructions: Please return to the ED for any new, persistent, or worsening symptoms. Follow up with your PCP in 1 week Resume home medications as directed Follow up with cardiology next week, Dr. Ramirez is expecting you Call office [phone] on Thursday to make an appt Address: [address] [place] [address] Referrals: Henry Ramirze MD [Staff Physician] - Leo Barajas MD [Staff Physician] - Disposition: HOME - Home Medications Comprehensive Discharge Medication List: Ambulatory Orders Atorvastatin Ca [Lipitor] 40 mg PO HS 03/17/13 Levothyroxine [Synthroid -] 62.5 mcg PO DAILY 03/17/13 Metformin HCl [Glucophage -] 500 mg PO DAILY 03/17/13 Olanzapine [Olanzapine Odt] 1.25 mg PO DAILY 03/17/13 Omeprazole [Prilosec (RX)] 20 mg PO DAILY 03/17/13 Polyethylene Glycol 3350 [Miralax 255 gm Btl -] 17 gm PO DAILY 03/17/13 Ammonium Lactate Lotion [Lac-Hydrin 12] 1 applic TP ASDIR 12/11/16 Clotrimazole [Lotrimin -] 1 applic TP DAILY 12/11/16 Meclizine HCl 12.5 mg PO DAILY 12/11/16 Memantine HCl 10 mg PO DAILY 12/11/16 Oxybutynin Chloride 5 mg PO DAILY 12/11/16 Warfarin Sodium [Coumadin] 3 mg PO HS 12/11/16 This patient is new to me today: Yes Date on this admission: 12/12/16 Emergency Visit: Yes ED Registration Date: 12/12/16 Care time: The patient presented to the Emergency Department on the above date and was hospitalized for further evaluation of their emergent condition. Critical Care patient: No - Discharge Referral Referred to [facility] No Physician Referral: eLo Urbano MD ([facility])
[2016-12-12 18:15] VITALS: BP 108/50; PULSE 63; TEMP 99.3
--- NOTE | 2016-12-13 13:43 | EKG ---
Test Reason : Blood Pressure : / mmHG Vent. Rate : 067 BPM Atrial Rate : 067 BPM P-R Int : 240 ms QRS Dur : 104 ms QT Int : 418 ms P-R-T Axes : 034 -37 132 degrees QTc Int : 441 ms SINUS RHYTHM WITH 1ST DEGREE A-V BLOCK LEFT AXIS DEVIATION LAFB ASWMI OF INDETERMINATE AGE CANNOT BE EXCLUDED LEFT VENTRICULAR HYPERTROPHY WITH REPOLARIZATION ABNORMALITY ABNORMAL ECG WHEN COMPARED WITH ECG OF 11-DEC-2016 19:39, HI INTERVAL HAS INCREASED NON-SPECIFIC CHANGE IN ST SEGMENT IN ANTERIOR LEADS NONSPECIFIC T WAVE ABNORMALITY NOW EVIDENT IN ANTERIOR LEADS CLINICAL CORRELATION AND FOLLOW UP TRACING Confirmed by ALBERTO DUNHAM MD ([id number] on 12/13/2016 1:43:09 PM Referred By: MARIANA HANCOCK Confirmed By:ALBERTO DUNHAM MD
--- NOTE | 2016-12-13 14:20 | EKG ---
Test Reason : Blood Pressure : / mmHG Vent. Rate : 098 BPM Atrial Rate : 098 BPM P-R Int : 000 ms QRS Dur : 100 ms QT Int : 366 ms P-R-T Axes : 000 -38 120 degrees QTc Int : 467 ms POOR DATA QUALITY, INTERPRETATION MAY BE ADVERSELY AFFECTED NORMAL SINUS RHYTHM LEFT AXIS DEVIATION LEFT VENTRICULAR HYPERTROPHY WITH REPOLARIZATION ABNORMALITY CANNOT RULE OUT SEPTAL INFARCT (CITED ON OR BEFORE 11-DEC-2016) ABNORMAL ECG WHEN COMPARED WITH ECG OF 11-DEC-2016 14:45, AR INTERVAL HAS DECREASED CL Confirmed by ALBERTO DUNHAM MD ([id number] on 12/13/2016 2:20:26 PM Referred By: Confirmed By:ALBERTO DUNHAM MD
== END 2016-12-12 18:00 | disposition home or self-care (01) | DRG 307 ==
LOC: JER 14:13 → JERBED 20:35 → J4W 23:23 → OBSVTOIN 12-12 15:59
PROVIDERS: ADMIT Internal Medicine; ATTEND Nurse Practitioner Acute Care
DX: I35.0 Nonrheumatic aortic (valve) stenosis (principal); H81.10 Benign paroxysmal vertigo, unspecified ear; R55 Syncope and collapse; E86.0 Dehydration; J45.909 Unspecified asthma, uncomplicated; F03.90 Unspecified dementia, unspecified severity, without behavioral disturbance, psychotic disturbance, mood disturbance, and anxiety; E11.9 Type 2 diabetes mellitus without complications; Z86.73 Personal history of transient ischemic attack (TIA), and cerebral infarction without residual deficits; F32.9 Major depressive disorder, single episode, unspecified; Z79.84 Long term (current) use of oral hypoglycemic drugs; K26.9 Duodenal ulcer, unspecified as acute or chronic, without hemorrhage or perforation; Z91.012 Allergy to eggs; R07.89 Other chest pain; E03.9 Hypothyroidism, unspecified; E78.5 Hyperlipidemia, unspecified; E78.00 Pure hypercholesterolemia, unspecified; I35.1 Nonrheumatic aortic (valve) insufficiency; I34.0 Nonrheumatic mitral (valve) insufficiency; I73.9 Peripheral vascular disease, unspecified; R79.1 Abnormal coagulation profile
CPT/HCPCS: 36415; 71010-TC; 73562-TC-LT; 73562-TC-RT; 80053; 80061; 81003; 83036; 83721; 83735; 84100; 84484; 85025; 85610; 87086; 93005; 93010; 93306-TC; 94640; 97116-GP; 97161-GP; 99285-25; G0378; J1644

== ENCOUNTER 2018-12-15 00:32 | Inpatient (IN) | payer OTHER ==
--- NOTE | 2018-12-15 03:49 | PDOC ---
History of Present Illness - General Chief Complaint: Nausea/Vomiting Stated Complaint: VOMITING,ABDOMINAL PAIN Time Seen by Provider: 12/15/18 03:48 Past History - Past Medical History Allergies/Adverse Reactions: Allergies Allergy/AdvReac Type Severity Reaction Status Date / Time egg [Egg] Allergy Mild Hives Verified 12/15/18 02:37 Egg Derived [Egg/Poultry] Allergy Verified 12/15/18 02:37 Home Medications: Ambulatory Orders Atorvastatin Calcium 40 mg PO DAILY 06/27/17 Buspirone HCl [Buspar -] 5 mg PO DAILY 06/27/17 Calcium (Oyster Shell) [Os-Shiva 500MG -] 500 mg PO BID 06/27/17 Levothyroxine [Synthroid -] 125 mg PO DAILY 06/27/17 Omeprazole/Sodium Bicarbonate [Omeprazole-Bicarb 40-1,100 Cap] 1 each PO DAILY 06/27/17 Warfarin Sodium [Coumadin] 3 mg PO ASDIR 06/27/17 metFORMIN HCL [Glucophage -] 500 mg PO DAILY 06/27/17 Donepezil HCl 5 mg PO DAILY 12/15/18 Ondansetron [Zofran *Odt*] 4 mg SL PRN 12/15/18 Pantoprazole Sodium 40 mg PO DAILY 12/15/18 Rivastigmine 1 each TD DAILY 12/15/18 Acetaminophen [Tylenol .Extra-Strength -] 500 mg PO Q8H PRN 12/17/18 Clotrimazole [Lotrimin -] 1 applic TP DAILY PRN 12/17/18 Hydrocortisone 1% Cream [Hytone 1% Cream -] 1 applic TP DAILY 12/17/18 Ketoconazole 2% Cream [Nizoral 2% Cream -] 1 applic TP BID 12/17/18 Lubiprostone [Amitiza] 8 mcg PO DAILY 12/17/18 Anemia: No Asthma: No Cancer: No Cardiac Disorders: Yes (BLOOD CLOTS) CVA: Yes COPD: No CHF: No Dementia: Yes Diabetes: Yes (NIIDM) GI Disorders: Yes (CONSTIPATION, HX OF DUODENAL ULCER) Disorders: No HTN: No Hypercholesterolemia: No Liver Disease: No Seizures: No Thyroid Disease: Yes - Surgical History Abdominal Surgery: No Appendectomy: No Cardiac Surgery: Yes (FILTER FOR BLOOD CLOTS TO LEFT GROIN) Cholecystectomy: No Lung Surgery: No Neurologic Surgery: No Orthopedic Surgery: Yes (RT LEG SURGERY FROM FALL) - Suicide/Smoking/Psychosocial Hx Smoking Status: No Smoking History: Never smoked Have you smoked in the past 12 months: No Number of Cigarettes Smoked Daily: 0 Hx Alcohol Use: No Drug/Substance Use Hx: No Substance Use Type: None Hx Substance Use Treatment: No *Physical Exam - Vital Signs Last Vital Signs Temp Pulse Resp BP Pulse Ox 97.6 F 70 16 113/62 99 12/15/18 00:32 12/15/18 00:32 12/15/18 00:32 12/15/18 00:32 12/15/18 00:32 ED Treatment Course - LABORATORY CBC & Chemistry Diagram: 12/17/18 05:30 12/17/18 05:30 Medical Decision Making - Medical Decision Making HPI: 87yo F with PMH of DM, Asthma, CVA (on warfarin), blood clots s/p IVC filter, Dementia, hypothyroidism, depression, Aortic valve stenosis (s/p TVAR 3-4 months prior) presenting with abdominal pain x 3 weeks. Patient's daughter is at the bedside providing collateral history. Patient was seen by her PCP last and given 8mg Zofran TID. She saw her GI doctor yesterday and had bloodwork and urine collected but unsure of the results. This doctor reduced the 8mg zofran to 4mg. The patient has been unable to sleep for the past two notes and has not been able to tolerate po. No history of abdominal surgeries. Had a colonoscopy about ten years ago which was "normal." Last bowel movement was a normal formed brown stool yesterday. No fevers, but endorses chills. States she has some shortness of breath when the abdominal pain worsens. No chest pain or urinary symptoms. PCP: Dr. Barajas GI: Dr. Arreguin ROS: Constitutional: no fever, +chills HEENT: no throat pain, no dysphagia Cardiovascular: no chest pain, no palpitations Respiratory: +cough, no shortness of breath Gastrointestinal: +abdominal pain, +nausea Genitourinary: no dysuria, no hematuria Musculoskeletal: no myalgia, no arthralgia Skin: no rash, no itching Neurologic: +headache, +weakness PE: General: Awake and alert, in no acute distress Head: No signs of trauma Eyes: EOMI, sclera anicteric ENT: Dry mucus membranes Neck: Normal ROM, supple Lungs: Lungs clear, Normal breath sounds Cardio: Regular rhythm, S1 and S2 present Abdomen: Tender to palpation diffusely, most focal to LLQ. Soft, nondistended. No guarding, no rebound, no masses. No CVA tenderness Extremities: Normal range of motion, Distal pulses present SKIN: Warm, Dry, normal turgor Neurologic: Cranial nerves II through XII grossly intact. Normal speech ED Course/MDM: DDX including but not limited to diverticulitis, gastritis, pancreatitis, UTI, pyelonephritis, GERD, nephrolithiasis, ACS, mesenteric ischemia Labs, EKG, CXR CTAP with IV contrast Awaiting EKG to check QTc before ordering antiemetics Fluids Ofirmev call received from lab; everything hemolyzed 12/15/18 05:07 CBC WBC 8.4 K/mm3 (4.0-10.0) 12/15/18 04:45 RBC 4.37 M/mm3 (3.60-5.2) 12/15/18 04:45 Hgb 12.8 GM/dL (10.7-15.3) 12/15/18 04:45 Hct 38.3 % (32.4-45.2) 12/15/18 04:45 MCV 87.5 fl (80-96) 12/15/18 04:45 MCH 29.3 pg (25.7-33.7) 12/15/18 04:45 MCHC 33.5 g/dl (32.0-36.0) 12/15/18 04:45 RDW 15.4 % (11.6-15.6) 12/15/18 04:45 Plt Count 183 K/MM3 (134-434) D 12/15/18 04:45 MPV 9.6 fl (7.5-11.1) 12/15/18 04:45 Absolute Neuts (auto) 6.7 K/mm3 (1.5-8.0) 12/15/18 04:45 Neutrophils % 79.9 % (42.8-82.8) 12/15/18 04:45 Lymphocytes % 15.3 % (8-40) D 12/15/18 04:45 Monocytes % 4.3 % (3.8-10.2) 12/15/18 04:45 Eosinophils % 0.2 % (0-4.5) 12/15/18 04:45 Basophils % 0.3 % (0-2.0) 12/15/18 04:45 Nucleated RBC % 0 % (0-0) 12/15/18 04:45 No leukocytosis EKG: rate 73, QTc 519, sinus rhythm, LVH, prolonged QT Unfortunately, we must avoid QT prolonging medications such as antiemetics 12/15/18 05:47 CMP Sodium 139 mmol/L (136-145) 12/15/18 06:00 Potassium 3.2 mmol/L (3.5-5.1) L 12/15/18 06:00 Chloride 102 mmol/L (98-107) 12/15/18 06:00 Carbon Dioxide 23 mmol/L (21-32) 12/15/18 06:00 Anion Gap 14 MMOL/L (8-16) 12/15/18 06:00 BUN 9.9 mg/dL (7-18) 12/15/18 06:00 Creatinine 0.7 mg/dL (0.55-1.3) 12/15/18 06:00 Est GFR (CKD-EPI)AfAm 89.03 12/15/18 06:00 Est GFR (CKD-EPI)NonAf 76.82 12/15/18 06:00 Random Glucose 118 mg/dL (74-106) H 12/15/18 06:00 Lactic Acid 1.0 mmol/L (0.4-2.0) 12/15/18 06:00 Calcium 8.2 mg/dL (8.5-10.1) L 12/15/18 06:00 Total Bilirubin 1.0 mg/dL (0.2-1) 12/15/18 06:00 AST 30 U/L (15-37) 12/15/18 06:00 ALT 21 U/L (13-61) 12/15/18 06:00 Alkaline Phosphatase 90 U/L (45-117) 12/15/18 06:00 Troponin I 0.02 ng/ml (0.00-0.05) 12/15/18 06:00 Total Protein 7.0 g/dl (6.4-8.2) 12/15/18 06:00 Albumin 3.6 g/dl (3.4-5.0) 12/15/18 06:00 Lipase 128 U/L (73-393) 12/15/18 06:00 K is 3.2, low BUN and Cr is normal Lactate normal Lipase normal Tpn undetectable Pending CT 12/15/18 06:50 Patient signed out to Dr. Haque and day team *DC/Admit/Observation/Transfer Diagnosis at time of Disposition: Nausea vomiting and diarrhea Abdominal pain Qualifiers: Abdominal location: generalized Qualified Code(s): R10.84 - Generalized abdominal pain - Discharge Dispostion Condition at time of disposition: Guarded Decision to Admit order: Yes - Referrals - Patient Instructions - Post Discharge Activity
--- NOTE | 2018-12-15 03:53 | PDOC ---
Attending Attestation - Resident Resident Name: RianaHafsa - ED Attending Attestation I have performed the following: I have examined & evaluated the patient, The case was reviewed & discussed with the resident, I agree w/resident's findings & plan - HPI HPI: 12/15/18 06:15 see resident hpi - Physicial Exam PE: 12/15/18 06:16 agree with resident exam - Medical Decision Making 12/15/18 06:16 88-year-old female with abdominal pain Labs, CT scan pending IV fluids as well as analgesics have been administered Case will be signed out to oncoming shift for further evaluation
[2018-12-15] MEDS ORDERED: SODIUM CHLORIDE 1,000 ML IV STA (04:15)
[2018-12-15] MEDS ORDERED: ACETAMINOPHEN 1000 MG/100 ML VIAL (NON FORMULARY) IVPB ONE (04:15)
[2018-12-15] MEDS ORDERED: FAMOTIDINE 20 MG/50 ML IVPB 20 MG/50 ML MG IVPB ONE ×2 (04:18→04:24)
[2018-12-15] MEDS ORDERED: ACETAMINOPHEN INJECTION 100 ML IVPB ONE (04:24)
[2018-12-15 04:57] LABS: BASO % 0.3 % (0-2.0); EOS % 0.2 % (0-4.5); HEMATOCRIT 38.3 % (32.4-45.2); HEMOGLOBIN 12.8 GM/dL (10.7-15.3); LYMPH % 15.3 % (8-40); MCH 29.3 pg (25.7-33.7); MCHC 33.5 g/dl (32.0-36.0); MEAN CELL VOLUME 87.5 fl (80-96); MEAN PLT VOLUME 9.6 fl (7.5-11.1); MONO % 4.3 % (3.8-10.2); NEUT % 79.9 % (42.8-82.8); PLATELET COUNT 183 K/MM3 (134-434); RBC 4.37 M/mm3 (3.60-5.2); RDW 15.4 % (11.6-15.6); WHITE BLOOD COUNT 8.4 K/mm3 (4.0-10.0)
[2018-12-15 06:21] LABS: INR 3.03 (0.83-1.09); PROTHROMBIN TIME (PATIENT) 36.1 SEC (9.7-13.0)
[2018-12-15 06:33] LABS: BASO % 0.3 % (0-2.0); EOS % 0.1 % (0-4.5); HEMATOCRIT 37.2 % (32.4-45.2); HEMOGLOBIN 12.5 GM/dL (10.7-15.3); LYMPH % 13.7 % (8-40); MCH 29.6 pg (25.7-33.7); MCHC 33.5 g/dl (32.0-36.0); MEAN CELL VOLUME 88.4 fl (80-96); MEAN PLT VOLUME 9.4 fl (7.5-11.1); MONO % 4.4 % (3.8-10.2); NEUT % 81.5 % (42.8-82.8); PLATELET COUNT 153 K/MM3 (134-434); RBC 4.21 M/mm3 (3.60-5.2); WHITE BLOOD COUNT 7.3 K/mm3 (4.0-10.0)
[2018-12-15 06:36] LABS: ALBUMIN 3.6 g/dl (3.4-5.0); BLOOD UREA NITROGEN 9.9 mg/dL (7-18); CALCIUM 8.2 mg/dL (8.5-10.1); CREATININE 0.7 mg/dL (0.55-1.3); POTASSIUM 3.2 mmol/L (3.5-5.1)
[2018-12-15 09:01] LABS: PH,URINE 8.5 (5.0-8.0); URINE APPEARANCE CLEAR; URINE BILIRUBIN NEGATIVE (NEGATIVE); URINE COLOR YELLOW; URINE GLUCOSE (UA) NEGATIVE (NEGATIVE); URINE KETONE TRACE (NEGATIVE); URINE LEUK ESTERASE NEGATIVE (NEGATIVE); URINE NITRITE NEGATIVE (NEGATIVE); URINE PROTEIN NEGATIVE (NEGATIVE); URINE UROBILINOGEN 0.2 mg/dL (0.2-1.0)
--- NOTE | 2018-12-15 09:04 | EKG ---
Test Reason : Blood Pressure : / mmHG Vent. Rate : 073 BPM Atrial Rate : 073 BPM P-R Int : 230 ms QRS Dur : 122 ms QT Int : 472 ms P-R-T Axes : 075 -43 062 degrees QTc Int : 519 ms SINUS RHYTHM WITH 1ST DEGREE A-V BLOCK LEFT AXIS DEVIATION LEFT VENTRICULAR HYPERTROPHY WITH QRS WIDENING ABNORMAL ECG WHEN COMPARED WITH ECG OF 27-JUN-2017 14:00, MINIMAL CRITERIA FOR SEPTAL INFARCT ARE NO LONGER PRESENT QT HAS LENGTHENED Confirmed by CHELSIE COOPER, SIERRA ([id number]) on 12/15/2018 9:03:29 AM Referred By: Confirmed By:SIERRA HOLGUIN MD
[2018-12-15] MEDS ORDERED: ONDANSETRON 4 MG/2 ML VIAL IVPB ONE (12:14)
[2018-12-15] MEDS ORDERED: ONDANSETRON 4 MG/2 ML VIAL ONE (12:24)
--- NOTE | 2018-12-15 12:24 | PDOC ---
*Physical Exam - Vital Signs Last Vital Signs Temp Pulse Resp BP Pulse Ox 97.6 F 70 16 113/62 99 12/15/18 00:32 12/15/18 00:32 12/15/18 00:32 12/15/18 00:32 12/15/18 00:32 ED Treatment Course - LABORATORY CBC & Chemistry Diagram: 12/15/18 05:57 12/15/18 06:00 - ADDITIONAL ORDERS Additional order review: Laboratory Results 12/15/18 12/15/18 12/15/18 06:50 06:00 06:00 PT with INR 36.10 H INR 3.03 H Sodium Potassium Chloride Carbon Dioxide Anion Gap BUN Creatinine Est GFR (CKD-EPI)AfAm Est GFR (CKD-EPI)NonAf Random Glucose Lactic Acid Calcium Total Bilirubin AST ALT Alkaline Phosphatase Troponin I 0.02 Total Protein Albumin Lipase Urine Color Yellow Urine Appearance Clear Urine pH 8.5 H D Ur Specific [place] 1.012 Urine Protein Negative Urine Glucose (UA) Negative Urine Ketones Trace H Urine Blood Negative Urine Nitrite Negative Urine Bilirubin Negative Urine Urobilinogen 0.2 Ur Leukocyte Esterase Negative 12/15/18 12/15/18 12/15/18 06:00 06:00 04:38 PT with INR Cancelled INR Cancelled Sodium 139 Potassium 3.2 L Chloride 102 Carbon Dioxide 23 Anion Gap 14 BUN 9.9 Creatinine 0.7 Est GFR (CKD-EPI)AfAm 89.03 Est GFR (CKD-EPI)NonAf 76.82 Random Glucose 118 H Lactic Acid 1.0 Calcium 8.2 L Total Bilirubin 1.0 AST 30 ALT 21 Alkaline Phosphatase 90 Troponin I Total Protein 7.0 Albumin 3.6 Lipase 128 Urine Color Urine Appearance Urine pH Ur Specific [place] Urine Protein Urine Glucose (UA) Urine Ketones Urine Blood Urine Nitrite Urine Bilirubin Urine Urobilinogen Ur Leukocyte Esterase 12/15/18 12/15/18 04:38 04:38 PT with INR INR Sodium Cancelled Potassium Cancelled Chloride Cancelled Carbon Dioxide Cancelled Anion Gap Cancelled BUN Cancelled Creatinine Cancelled Est GFR (CKD-EPI)AfAm Cancelled Est GFR (CKD-EPI)NonAf Cancelled Random Glucose Cancelled Lactic Acid Cancelled Calcium Cancelled Total Bilirubin Cancelled AST Cancelled ALT Cancelled Alkaline Phosphatase Cancelled Troponin I Total Protein Cancelled Albumin Cancelled Lipase Cancelled Urine Color Urine Appearance Urine pH Ur Specific [place] Urine Protein Urine Glucose (UA) Urine Ketones Urine Blood Urine Nitrite Urine Bilirubin Urine Urobilinogen Ur Leukocyte Esterase 12/15/18 12/15/18 05:57 04:45 RBC 4.21 4.37 MCV 88.4 87.5 MCHC 33.5 33.5 RDW 15.0 15.4 MPV 9.4 9.6 Neutrophils % 81.5 79.9 Lymphocytes % 13.7 15.3 D Monocytes % 4.4 4.3 Eosinophils % 0.1 0.2 Basophils % 0.3 0.3 - RADIOLOGY Radiology Studies Ordered: Category Date Time Status ABDOMEN & PELVIS CT W/O CONTR [CT] Stat CT Scan 12/15/18 09:40 Completed ABDOMEN US [US] Stat Ultrasound 12/15/18 12:14 Ordered - Medications Given in the ED: ED Medications Discontinued Medications Generic Name Dose Route Start Last Admin Trade Name Freq PRN Reason Stop Dose Admin Acetaminophen 1,000 mg 12/15/18 04:15 12/15/18 04:35 Ofirmev Injection - IVPB 12/15/18 04:16 1,000 mg ONCE ONE Administration Sodium Chloride 1,000 mls @ 1,000 mls/hr 12/15/18 04:15 12/15/18 04:35 Normal Saline - IV 12/15/18 05:14 1,000 mls/hr ASDIR STA Administration Famotidine/Sodium Chloride 20 mg in 50 mls @ 100 mls/hr 12/15/18 04:18 04:52 Pepcid 20 Mg Premixed Ivpb - IVPB 12/15/18 04:47 100 mls/hr ONCE ONE Administration Medical Decision Making - Medical Decision Making 12/15/18 12:22 signout received at 7AM 88F with abdominal pain, N+V+D. Initial CT limited due to motion artifact. Repeat CT with dilated GB, otherwise unremarkable. Pt reassessed - states the pain has resolved. However, upon PO challenge, pt vomited bilious vomit. Will admit for PO intolerance. RUQ US ordered *DC/Admit/Observation/Transfer Diagnosis at time of Disposition: Abdominal pain, Nausea vomiting and diarrhea - Discharge Dispostion Condition at time of disposition: Fair Decision to Admit order: Yes - Referrals - Patient Instructions - Post Discharge Activity - Attestations Physician Attestion: 12/15/18 12:24 I, Dr. Mario Haque MD, attest that this document has been prepared under my direction and personally reviewed by me in its entirety. I further attest, that it accurately reflects all work, treatment, procedures and medical decision -making performed by me.
[2018-12-15 16:03] VITALS: BMI 25.9
[2018-12-15] MEDS ORDERED: ACETAMINOPHEN 325 MG TABLET (FP) PO PRN (16:06)
[2018-12-15] MEDS ORDERED: TRIMETHOBENZAMIDE HCL 200MG/2ML INJ IM PRN (16:06)
[2018-12-15] MEDS ORDERED: D5-1/2NS+20 MEQ KCL - 20 MEQ/1,000 ML INFUS.BAG IV SCH ×2 (16:15→16:38)
--- NOTE | 2018-12-15 16:28 | PN ---
Teaching Attending Note Name of Resident: Kinga Bean ATTENDING PHYSICIAN STATEMENT I saw and evaluated the patient. I reviewed the resident's note and discussed the case with the resident. I agree with the resident's findings and plan as documented. Seen and examined; please refer to resident note for further historical information. 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 Poor health literacy per family and limited history. Abdominal pain for 3 days now with nausea/vomiting. She was in her normal state of health and on thursday she was noted to be woken by the vomiting. She states she has 10/10 abdominal pain improved with eating; now is diffuse. No sick contacts, recent travel 09/2018 to [facility]. Failed PO challenge so will be admitted. GB distended 8.2cm diverticulosis without itis. Negative CXR. 10 sys ROS done and negative aside from HPI PMH, PSH, FH, SH reviewed VS, labs, imaging reviewed AAOx1, NAD, resting in bed NC AT EOMI PERRLA RRR s1/2 Periorbital chelitis noted Tender diffusely, ND, +BS CN2-12 wnl, no fnd. ASSESSMENT AND PLAN: -Prolonged QTc on psych meds (Consulted Dr. Gordillo to make any adjustments; pending. Recheck EKG in AM) -Hx HTN -Hx HLD -Hx CVA -Hx Dementia with behavioral distrubance -Hx -Hx Hypothyroidism -S/P IVC Filter -S/P TAVR on warfarin, slightly ST-INR (Consulting pharmacy for warfarin dosing and confirming with her home emds) -Presumed vertigo (Was seen by Dr. Trinidad and placed on meclezine in the past) QTc 519
--- NOTE | 2018-12-15 17:07 | HP ---
CHIEF COMPLAINT: Vomiting PCP: HISTORY OF PRESENT ILLNESS: 88 y/o F with PMHx of CVA (on warfarin, residual Left eyelid lag), AV Stenosis s /p TAVR, DM, Asthma, Blood clot s/p IVC Filter, Dementia, Hypothyroidism, Depression, PPM presents with Vomiting. Daughter was present at bedside and aided in providing the HPI. Patient has been experiencing a stomach ache for the past 3 weeks. She has also experienced intermittent vomiting which has self resolved with kendal moira during this time period. Patient was in her usual state of health on Thursday; Thursday Morning she was awoken by feelings of nausea and has > 10 episodes of vomiting since onset. She describes the vomit as yellow /green, nonbloody and preventing PO Intake. Since onset of vomiting, patient has additionally experience 10/10, diffuse squeezing abdominal discomfort that worsens when she eats. This is the 1st time the pain has been this bad prompting her to visit the ED. She denies any sick contacts. Additionally endorses chills. Denies any any associated fevers, chest pain, SOB, diarrhea, constipation, dysuria. Her Last BM was this AM and normal. She last tolerated a meal on Thursday. 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 Ambulation: [place] Jem Family History: Discussed with patient, NonContributory Allergies egg [Egg] Allergy (Mild, Verified 12/15/18 02:37) Hives Egg Derived [Egg/Poultry] Allergy (Verified 12/15/18 02:37) HOME MEDICATIONS: Home Medications Medication Instructions Recorded Atorvastatin Calcium 40 mg PO DAILY 06/27/17 Buspirone HCl [Buspar -] 2.5 mg PO DAILY 06/27/17 Calcium (Oyster Shell) [Os-Shiva 500 mg PO BID 06/27/17 500Mg -] Levothyroxine [Synthroid -] 125 mg PO DAILY 06/27/17 Omeprazole/Sodium Bicarbonate 1 each PO DAILY 06/27/17 [Omeprazole-Bicarb 40-1,100 Cap] Quetiapine Fumarate [Seroquel -] 25 mg PO HS #5 tablet 06/27/17 Warfarin Sodium [Coumadin] 3 mg PO ASDIR 06/27/17 Warfarin Sodium [Coumadin] 4 mg PO ASDIR 06/27/17 metFORMIN HCL [Glucophage -] 500 mg PO DAILY 06/27/17 Aspirin [ASA -] 81 mg PO DAILY 08/11/18 Brinzolamide [Azopt] 1 drop OU DAILY 08/11/18 C,E,Zinc,Copper 11/[id number]/Lut 1 tab PO DAILY 08/11/18 [Ocuvite Adult 50 Plus Softgel] Donepezil HCl 5 mg PO DAILY 12/15/18 Metoclopramide HCl 5 mg PO DAILY 12/15/18 Ondansetron [Zofran *Odt*] 4 mg SL PRN 12/15/18 Pantoprazole Sodium 40 mg PO DAILY 12/15/18 Rivastigmine 1 each TD DAILY 12/15/18 REVIEW OF SYSTEMS As per HPI PHYSICAL EXAMINATION Vital Signs - 24 hr 12/15/18 12/15/18 00:32 15:53 Temperature 97.6 F 96.4 F L Pulse Rate 70 65 Respiratory 16 20 Rate Blood Pressure 113/62 147/63 O2 Sat by Pulse 99 Oximetry (%) GENERAL: A&Ox1, NAD HEAD: NCAT EYES: PERRL, EOMI, Left Eyelid Lag (residual from prior CVA) EARS, NOSE, THROAT: Dry mucous membranes. NECK: Supple, No JVD LUNGS: CTAB, No wheezes, no crackles. HEART: Regular rate and rhythm, normal S1 and S2 without murmur ABDOMEN: Soft, tender to palpation throughout, not distended, + bowel sounds, no guarding, no rebound MUSCULOSKELETAL: No CVA tenderness EXTREMITIES: 2+ pulses, No peripheral edema. NEUROLOGICAL: Cranial nerves II-XII intact. Normal speech. Gross sensation intact throughout. 5/5 muscle strength throughout. SKIN: Warm, dry. Small maculopapular rash surrounding upper and lower lips ( Daughter says irritation from recent waxing), No associated drainage, not tender to palpation Laboratory Results - last 24 hr 09/04/19 09/04/19 09/04/19 04:45 05:57 06:00 WBC 8.4 7.3 RBC 4.37 4.21 Hgb 12.8 12.5 Hct 38.3 37.2 MCV 87.5 88.4 MCH 29.3 29.6 MCHC 33.5 33.5 RDW 15.4 15.0 Plt Count 183 D 153 MPV 9.6 9.4 Absolute Neuts (auto) 6.7 5.9 Neutrophils % 79.9 81.5 Lymphocytes % 15.3 D 13.7 Monocytes % 4.3 4.4 Eosinophils % 0.2 0.1 Basophils % 0.3 0.3 Nucleated RBC % 0 0 PT with INR INR Sodium Potassium Chloride Carbon Dioxide Anion Gap BUN Creatinine Est GFR (CKD-EPI)AfAm Est GFR (CKD-EPI)NonAf Random Glucose Lactic Acid 1.0 Calcium Total Bilirubin AST ALT Alkaline Phosphatase Troponin I Total Protein Albumin Lipase Urine Color Urine Appearance Urine pH Ur Specific [place] Urine Protein Urine Glucose (UA) Urine Ketones Urine Blood Urine Nitrite Urine Bilirubin Urine Urobilinogen Ur Leukocyte Esterase 12/15/18 12/15/18 12/15/18 06:00 06:00 06:00 WBC RBC Hgb Hct MCV MCH MCHC RDW Plt Count MPV Absolute Neuts (auto) Neutrophils % Lymphocytes % Monocytes % Eosinophils % Basophils % Nucleated RBC % PT with INR 36.10 H INR 3.03 H Sodium 139 Potassium 3.2 L Chloride 102 Carbon Dioxide 23 Anion Gap 14 BUN 9.9 Creatinine 0.7 Est GFR (CKD-EPI)AfAm 89.03 Est GFR (CKD-EPI)NonAf 76.82 Random Glucose 118 H Lactic Acid Calcium 8.2 L Total Bilirubin 1.0 AST 30 ALT 21 Alkaline Phosphatase 90 Troponin I 0.02 Total Protein 7.0 Albumin 3.6 Lipase 128 Urine Color Urine Appearance Urine pH Ur Specific [place] Urine Protein Urine Glucose (UA) Urine Ketones Urine Blood Urine Nitrite Urine Bilirubin Urine Urobilinogen Ur Leukocyte Esterase 12/15/18 06:50 WBC RBC Hgb Hct MCV MCH MCHC RDW Plt Count MPV Absolute Neuts (auto) Neutrophils % Lymphocytes % Monocytes % Eosinophils % Basophils % Nucleated RBC % PT with INR INR Sodium Potassium Chloride Carbon Dioxide Anion Gap BUN Creatinine Est GFR (CKD-EPI)AfAm Est GFR (CKD-EPI)NonAf Random Glucose Lactic Acid Calcium Total Bilirubin AST ALT Alkaline Phosphatase Troponin I Total Protein Albumin Lipase Urine Color Yellow Urine Appearance Clear Urine pH 8.5 H D Ur Specific [place] 1.012 Urine Protein Negative Urine Glucose (UA) Negative Urine Ketones Trace H Urine Blood Negative Urine Nitrite Negative Urine Bilirubin Negative Urine Urobilinogen 0.2 Ur Leukocyte Esterase Negative Active Medications Acetaminophen (Tylenol -) 650 mg PO Q4H PRN PRN Reason: PAIN OR FEVER Lactated Ringer's (Lactated Ringers Solution) 1,000 ml in 1,000 mls @ 100 mls/ hr IV ASDIR [facility] Metoclopramide HCl (Reglan Injection -) 10 mg IVPB Q8H [facility] Ondansetron HCl (Zofran Injection) 4 mg IVPB Q4H PRN PRN Reason: NAUSEA AND/OR VOMITING Pantoprazole Sodium (Protonix Iv) 40 mg IVPUSH DAILY [facility] IMAGING: -CXR: Single AP view of the chest reveals no change since 06/27/2017. There are clear lungs, prominent mediastinum and double lead pacemaker with valve replacement. An acute chest process is not seen. Correlation recommended. -CT A/P without contrast: Follow-up imaging shows persistent distention of the gallbladder up to 8.2 cm, correlate clinically for any signs of cholecystitis, recommend sonography of the abdomen. Diverticulosis without definite signs of diverticulitis or colitis. No ascites or fluid collections identified. No free air observed. No signs of bowel obstruction or hernia. -RUQ US: Biliary sludge with no evidence of cholelithiasis or acute pathology. -EKG: SINUS RHYTHM WITH 1ST DEGREE A-V BLOCK, LAD, LVH WITH QRS WIDENING, VR 73 , QTc 519 ASSESSMENT/PLAN: 88 y/o F with PMHx of CVA (on warfarin, residual Left eyelid lag), AV Stenosis s /p TAVR, DM, Asthma, Blood clot s/p IVC Filter, Dementia, Hypothyroidism, Depression, PPM presents with Vomiting #Vomiting -Unclear Etiology; Still consider possible infectious cause from recent travel, Less likely Acute gastritis -GI Cocktail (Pepcid/IVF/Zofran) tried in ED without relief -Antiemesis via IV Metoclopramide; Will hold off on Zofran use given prolonged QT -PPI -IV Hydration via LR -Avoid NSAIDs -Pain control via IV Acetaminophen -Check HPylori -GI (Dr. Arreguin) consulted, appreciate rec's #Prolonged QT -QTc 519 on EKG -Avoid QT prolonging agents; Will hold home Dose Psych meds and Zofran -Serial EKGs -Psych (Dr. Gordillo) Consulted for med recommendations in the setting of Prolonged QT #CVA on Warfarin -Daughter says patient is currently on 3mg warfarin, unable to confirm dose with pharmacy, will need to call Dr. Sales's office tmrw for accurate dose -Daily INR Checks -Will give 3mg Warfarin x1 tonight #Hypokalemia -Replete PRN #FEN -LR @ 100 mls/hr -Replete Lytes PRN -Trial Clear liquid diet; Advance as tolerated #PPx -DVT: SCDs -GI: PPI Dispo: Admit to Med-Surg Visit type - Emergency Visit Emergency Visit: Yes ED Registration Date: 12/15/18 Care time: The patient presented to the Emergency Department on the above date and was hospitalized for further evaluation of their emergent condition. - New Patient This patient is new to me today: Yes Date on this admission: 12/17/18 - Critical Care Critical Care patient: No ATTENDING PHYSICIAN STATEMENT I saw and evaluated the patient. I reviewed the resident's note and discussed the case with the resident. I agree with the resident's findings and plan as documented. SUBJECTIVE: OBJECTIVE: ASSESSMENT AND PLAN:
--- NOTE | 2018-12-15 17:19 | CON.GI ---
Consult Consult Specialty:: GI Lantin - History of Present Illness History of Present Illness: 87yo F with PMH of DM, Asthma, CVA (on warfarin), blood clots s/p IVC filter, Dementia, hypothyroidism, depression, Aortic valve stenosis (s/p TVAR 3-4 months prior) presenting with abdominal pain x 3 weeks. Patient's daughter is at the bedside providing collateral history. Patient was seen by her PCP last and given 8mg Zofran TID. She saw her GI doctor yesterday and had bloodwork and urine collected but unsure of the results. This doctor reduced the 8mg zofran to 4mg. The patient has been unable to sleep for the past two notes and has not been able to tolerate po. No history of abdominal surgeries. Had a colonoscopy about ten years ago which was "normal." Last bowel movement was a normal formed brown stool yesterday. No fevers, but endorses chills. States she has some shortness of breath when the abdominal pain worsens. No chest pain or urinary symptoms. 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 Cardio/Vascular: Yes: Aortic Insufficiency, Aortic Stenosis, HTN, Hyperlipdemia Pulmonary: Yes: Asthma ...: No Endocrine: Yes: Hypothyroidism - Alcohol/Substance Use Hx Alcohol Use: No - Smoking History Smoking history: Never smoked Have you smoked in the past 12 months: No Aproximately how many cigarettes per day: 0 Home Medications - Allergies Allergies/Adverse Reactions: Allergies Allergy/AdvReac Type Severity Reaction Status Date / Time egg [Egg] Allergy Mild Hives Verified 12/15/18 02:37 Egg Derived [Egg/Poultry] Allergy Verified 12/15/18 02:37 - Home Medications Home Medications: Ambulatory Orders Atorvastatin Calcium 40 mg PO DAILY 06/27/17 Buspirone HCl [Buspar -] 2.5 mg PO DAILY 06/27/17 Calcium (Oyster Shell) [Os-Shiva 500Mg -] 500 mg PO BID 06/27/17 Levothyroxine [Synthroid -] 125 mg PO DAILY 06/27/17 Omeprazole/Sodium Bicarbonate [Omeprazole-Bicarb 40-1,100 Cap] 1 each PO DAILY 06/27/17 Quetiapine Fumarate [Seroquel -] 25 mg PO HS #5 tablet 06/27/17 Warfarin Sodium [Coumadin] 3 mg PO ASDIR 06/27/17 Warfarin Sodium [Coumadin] 4 mg PO ASDIR 06/27/17 metFORMIN HCL [Glucophage -] 500 mg PO DAILY 06/27/17 Aspirin [ASA -] 81 mg PO DAILY 08/11/18 Brinzolamide [Azopt] 1 drop OU DAILY 08/11/18 C,E,Zinc,Copper 11/Vgqys2n/Lut [Ocuvite Adult 50 Plus Softgel] 1 tab PO DAILY Donepezil HCl 5 mg PO DAILY 12/15/18 Metoclopramide HCl 5 mg PO DAILY 12/15/18 Ondansetron [Zofran *Odt*] 4 mg SL PRN 12/15/18 Pantoprazole Sodium 40 mg PO DAILY 12/15/18 Rivastigmine 1 each TD DAILY 12/15/18 Physical Exam-GI Vital Signs: Vital Signs Temperature 96.4 F L 12/15/18 15:53 Pulse Rate 65 12/15/18 15:53 Respiratory Rate 20 12/15/18 15:53 Blood Pressure 147/63 12/15/18 15:53 O2 Sat by Pulse Oximetry (%) 99 12/15/18 00:32 Constitutional: Yes: No Distress, Poor Hygeine HENT: Yes: Atraumatic Cardiovascular: Yes: Regular Rate and Rhythm Respiratory: Yes: CTA Bilaterally ...Palpate: Yes: Soft. No: Firm/Rigid, Guarding, Hepatomegaly, Mass, Pulsatile Mass, Splenomegaly, Tenderness Labs: CBC, BMP 12/15/18 05:57 12/15/18 06:00 INR, PTT INR 3.03 (0.83-1.09) H 12/15/18 06:00 Hepatic Panel Total Bilirubin 1.0 mg/dL (0.2-1) 12/15/18 06:00 AST 30 U/L (15-37) 12/15/18 06:00 ALT 21 U/L (13-61) 12/15/18 06:00 Alkaline Phosphatase 90 U/L (45-117) 12/15/18 06:00 Albumin 3.6 g/dl (3.4-5.0) 12/15/18 06:00 Problem List - Problems (1) Nausea & vomiting Assessment/Plan: repeat ct no evidence of obstructuion R> IV Pantoprazole Reglan and Zofran UGIS with small bowel follow through Code(s): R11.2 - NAUSEA WITH VOMITING, UNSPECIFIED
[2018-12-15] MEDS: METOCLOPRAMIDE HCL INJECTION 10 MG/2 ML VIAL IVPB SCH (18:19)
[2018-12-16] MEDS: LACTATED RINGERS SOLUTION 1,000 ML/1,000 ML INFUS.BAG IV SCH ×3 (00:58→21:23)
[2018-12-16] MEDS: METOCLOPRAMIDE HCL INJECTION 10 MG/2 ML VIAL IVPB SCH ×3 (01:01→17:36)
[2018-12-16] MEDS: ONDANSETRON 4 MG/2 ML VIAL IVPB PRN ×2 (01:07→21:10)
[2018-12-16 07:11] LABS: INR 3.72 (0.83-1.09); PROTHROMBIN TIME (PATIENT) 44.5 SEC (9.7-13.0)
[2018-12-16 07:30] LABS: BASO % 0.6 % (0-2.0); EOS % 0.7 % (0-4.5); HEMATOCRIT 34.4 % (32.4-45.2); HEMOGLOBIN 11.6 GM/dL (10.7-15.3); LYMPH % 20.7 % (8-40); MCH 29.7 pg (25.7-33.7); MCHC 33.6 g/dl (32.0-36.0); MEAN CELL VOLUME 88.5 fl (80-96); MEAN PLT VOLUME 9.7 fl (7.5-11.1); MONO % 7.7 % (3.8-10.2); NEUT % 70.3 % (42.8-82.8); PLATELET COUNT 153 K/MM3 (134-434); RBC 3.89 M/mm3 (3.60-5.2); RDW 15.1 % (11.6-15.6); WHITE BLOOD COUNT 7.2 K/mm3 (4.0-10.0)
--- NOTE | 2018-12-16 07:45 | PN ---
Progress Note, Physician History of Present Illness: GI FOLLOW UP NOTE Patient evaluated and case discussed wit Dr Arreguin Patient complain of abdominal pain located to upper quadrants accompanied with nausea, denies vomiting. She states the pain is about the same and has not improved. Patient states having loose, yellow colored stools. Denies rectal bleeding, blood in stool. - Current Medication List Current Medications: Active Medications Acetaminophen (Tylenol -) 650 mg PO Q4H PRN PRN Reason: PAIN OR FEVER Lactated Ringer's (Lactated Ringers Solution) 1,000 ml in 1,000 mls @ 100 mls/ hr IV ASDIR [facility] Last Admin: 12/16/18 04:05 Dose: 100 mls/hr Metoclopramide HCl (Reglan Injection -) 10 mg IVPB Q8H [facility] Last Admin: 12/16/18 01:01 Dose: 10 mg Ondansetron HCl (Zofran Injection) 4 mg IVPB Q4H PRN PRN Reason: NAUSEA AND/OR VOMITING Pantoprazole Sodium (Protonix Iv) 40 mg IVPUSH DAILY [facility] Warfarin Sodium (Coumadin -) 3 mg PO DAILY@1800 [facility] - Objective Vital Signs: Vital Signs Temperature 98.3 F 12/16/18 05:38 Pulse Rate 80 12/16/18 05:38 Respiratory Rate 18 12/16/18 05:38 Blood Pressure 147/65 12/16/18 05:38 O2 Sat by Pulse Oximetry (%) 99 12/15/18 00:32 Constitutional: Yes: No Distress, Calm Eyes: Yes: Conjunctiva Clear HENT: Yes: Atraumatic Cardiovascular: Yes: Regular Rate and Rhythm Respiratory: Yes: Regular, CTA Bilaterally Gastrointestinal: Yes: Soft, Hypoactive Bowel Sounds, Tenderness (diffuse) Neurological: Yes: Alert Psychiatric: Yes: Alert Labs: INR, PTT INR 3.72 (0.83-1.09) H 12/16/18 05:33 <Sophia Looney - Last Filed: 12/16/18 07:40> - Current Medication List Current Medications: Active Medications Acetaminophen (Tylenol -) 650 mg PO Q4H PRN PRN Reason: PAIN OR FEVER Lactated Ringer's (Lactated Ringers Solution) 1,000 ml in 1,000 mls @ 100 mls/ hr IV ASDIR [facility] Last Admin: 12/16/18 04:05 Dose: 100 mls/hr Metoclopramide HCl (Reglan Injection -) 10 mg IVPB Q8H [facility] Last Admin: 12/16/18 09:10 Dose: 10 mg Ondansetron HCl (Zofran Injection) 4 mg IVPB Q4H PRN PRN Reason: NAUSEA AND/OR VOMITING Pantoprazole Sodium (Protonix Iv) 40 mg IVPUSH DAILY [facility] Last Admin: 12/16/18 09:10 Dose: 40 mg Warfarin Sodium (Coumadin -) 3 mg PO DAILY@1800 [facility] - Objective Vital Signs: Vital Signs Temperature 98.1 F 12/16/18 09:00 Pulse Rate 65 12/16/18 09:00 Respiratory Rate 18 12/16/18 09:00 Blood Pressure 147/63 12/16/18 09:00 O2 Sat by Pulse Oximetry (%) 99 12/15/18 00:32 Labs: CBC, BMP 12/16/18 05:33 12/16/18 05:33 INR, PTT INR 3.72 (0.83-1.09) H 12/16/18 05:33 <Ryan Arreguin - Last Filed: 12/16/18 13:25> Problem List - Problems (1) Abdominal pain Assessment/Plan: R> US shows dilated gallbladder >HIDA scan with EF to R/O chronic cholecystits >continue Reglan and Pantoprazole >clear liquid diet >H. pylori results pending Code(s): R10.9 - UNSPECIFIED ABDOMINAL PAIN (2) Loose stools Assessment/Plan: >collect stool for C-diff, C+S, Calpopectin Code(s): R19.5 - OTHER FECAL ABNORMALITIES <Sophia Looney - Last Filed: 12/16/18 07:40> - Problems (1) Nausea & vomiting Code(s): R11.2 - NAUSEA WITH VOMITING, UNSPECIFIED <Ryan Arreguin - Last Filed: 12/16/18 13:25>
[2018-12-16 07:52] LABS: ALBUMIN 3.2 g/dl (3.4-5.0); BILIRUBIN,TOTAL 1.1 mg/dL (0.2-1); BLOOD UREA NITROGEN 10.9 mg/dL (7-18); CALCIUM 7.8 mg/dL (8.5-10.1); CREATININE 0.7 mg/dL (0.55-1.3); MAGNESIUM 1.8 mg/dL (1.8-2.4); POTASSIUM 3.2 mmol/L (3.5-5.1); TOT PROT 6.2 g/dl (6.4-8.2)
[2018-12-16] MEDS: PANTOPRAZOLE SODIUM 40 MG VIAL IVPUSH SCH (09:10)
--- NOTE | 2018-12-16 10:21 | PN ---
Teaching Attending Note Name of Resident: Florin Hunter ATTENDING PHYSICIAN STATEMENT I saw and evaluated the patient. I reviewed the resident's note and discussed the case with the resident. I agree with the resident's findings and plan as documented. Seen and examined; please refer to resident note for further historical information. No further complaints; afebrile and hemodynamically stable. Gi consult reviewed and orders placed. No worsening abdominal pain. HIDA pending. One episode NBNB emesis overnight per nursing documentation. VS, labs, imaging reviewed NAD, AAO, resting in bed. Frail NC AT EOMI PERRLA Mild diffuse tenderness w/o rebound or guarding, ND, +BS HR wnl, s1/2 Moves all 4 ext, no distortions in sensorium. Not agitated, appropriate behavior HIDA pending, H. Pylori pending. Cdiff requested by GI; pending. Repeat EKG in AM to re-assess QTc UCx with normal brian Pharmacy records pending ASSESSMENT AND PLAN: Patient presents with nausea/vomiting; suboptimal historian. Obtained GI consultation; recommended HIDA to r/o chronic tonie which is pending. Only 1x vomiting overnight. Clears to fulls as tolerated. Complex PMH; in process of verifying records with pharmacy. Her problems include: -Nausea and vomiting (Followup HIDA, H. pylori) -Hx DM (not uncontrolled making gastroparesis less likely) -Prolonged QTc on psych meds (Consulted Dr. Gordillo to make any adjustments; pending. Recheck EKG in AM) -Hx HTN -Hx HLD -Hx CVA -Hx Dementia with behavioral distrubance -Hx -Hx Hypothyroidism -S/P IVC Filter -S/P TAVR on warfarin, slightly ST-INR (Consulting pharmacy for warfarin dosing and confirming with her home emds) -Presumed vertigo (Was seen by Dr. Trinidad and placed on meclezine in the past) Discussed with case management; will have PT assess to see if rehab would be indicated
[2018-12-16] MEDS ORDERED: ACETAMINOPHEN 1000 MG/100 ML VIAL (NON FORMULARY) IVPB ONE (11:08)
[2018-12-16] MEDS ORDERED: busPIRone HCL 5 MG TABLET PO ONE (13:36)
--- NOTE | 2018-12-16 13:42 | CON.PSY ---
Psychiatry Consult Chief Complaint: 88 Prabha old female seen for Psych eval. History vobtained from her daughter who is her Health Care proxy. She has aa long history of Anxiety Disorder and sandie seen by and been on Buspar 5mg po od for a long time. Symptoms: reports: Anxiety - Previous Psychiatric Treatment Outpatient: More than 6 mos ago Inpatient: None - Previous Substance Abuse Treatment Outpatient: None Inpatient: None - Reason for Previous Treatment Reason for Previous Treatment: Anxiety or Panic Disorder - Current Medications Current Medications: Active Medications Acetaminophen (Tylenol -) 650 mg PO Q4H PRN PRN Reason: PAIN OR FEVER Lactated Ringer's (Lactated Ringers Solution) 1,000 ml in 1,000 mls @ 100 mls/ hr IV ASDIR [facility] Last Admin: 12/16/18 04:05 Dose: 100 mls/hr Metoclopramide HCl (Reglan Injection -) 10 mg IVPB Q8H [facility] Last Admin: 12/16/18 09:10 Dose: 10 mg Ondansetron HCl (Zofran Injection) 4 mg IVPB Q4H PRN PRN Reason: NAUSEA AND/OR VOMITING Pantoprazole Sodium (Protonix Iv) 40 mg IVPUSH DAILY [facility] Last Admin: 12/16/18 09:10 Dose: 40 mg Warfarin Sodium (Coumadin -) 3 mg PO DAILY@1800 [facility] - Allergies Allergies: Allergies Allergy/AdvReac Type Severity Reaction Status Date / Time egg [Egg] Allergy Mild Hives Verified 12/15/18 02:37 Egg Derived [Egg/Poultry] Allergy Verified 12/15/18 02:37 - Current Living Status Usual Living Arrangement: Alone - Current Mental Status Evaluation Appearance: Well Groomed Attitude: Cooperative - Affect Affect: Constrictive Appropriateness: Appropriate to Content - Mood Mood: Euthymic - Speech/Language Expressive: Delayed - Psychomotor Activity Psychomotor Activity: Slowed - Thought Process Thought Process: Intact - Thought Content Hallucinations: Absent Delusions: Absent - Self Perception Self Perception: No Impairment - Cognition Attention: Alert Orientation: Person Memory, Immediate Recall: Intact, Impaired Memory, Short Term: 1/3 Memory, Remote with Promptin/3 - Concentration Serial Sevens Intact: No Simple Calculations Intact: No - Abstraction Proverb Interpretation: Intact Judgement: Intact - Insight Insight: Intact - Impulse Control Impulse Control: Good Control - Suicidal Ideation Suicidal Ideation: No - Homicidal Ideation Homicidal Ideation: No Assessment/Plan 1) start Buspar 5mg po hs. 2) Buspar does not cause4 any QT prolongation.
--- NOTE | 2018-12-16 17:25 | PN.GI ---
GI Progress Note Subjective: patient with nausea, vomiting, diarrhea weakness and abdomen. Patient to have a anticholinesterase patch started by neurologist - Objective Vital Signs: Vital Signs Temperature 98.1 F 12/16/18 09:00 Pulse Rate 65 12/16/18 09:00 Respiratory Rate 18 12/16/18 09:00 Blood Pressure 147/63 12/16/18 09:00 O2 Sat by Pulse Oximetry (%) 99 12/15/18 00:32 Constitutional: Well Nourished Eyes: Yes: Conjunctiva Clear HENT: Yes: Atraumatic Neck: Yes: Trachea Midline Cardiovascular: Yes: Regular Rate and Rhythm Respiratory: Yes: CTA Bilaterally ...Palpate: Yes: Soft. No: Firm/Rigid, Guarding, Hepatomegaly, Mass, Pulsatile Mass, Splenomegaly, Tenderness, Tenderness, Epigastium Labs: CBC, BMP 12/16/18 05:33 12/16/18 05:33 INR, PTT INR 3.72 (0.83-1.09) H 12/16/18 05:33 Problem List - Problems (1) Nausea & vomiting Assessment/Plan: most likely secondary to rivastigmine R> will discontinue patch ---reconsult Dr Vee' advacne diet off meds no further GI w/u at this time Code(s): R11.2 - NAUSEA WITH VOMITING, UNSPECIFIED
[2018-12-16] MEDS ORDERED: WARFARIN NA 3 MG TABLET PO SCH (18:00)
[2018-12-16] MEDS ORDERED: POTASSIUM CHLORIDE TABS 20 MEQ TABLET.ER (FP) PO ONE (20:29)
[2018-12-16] MEDS: KCL 10 MEQ IVPB 10 MEQ/100 ML INFUS.BAG IVPB SCH (21:22)
--- NOTE | 2018-12-16 21:36 | PN ---
Physical Exam: SUBJECTIVE: Patient seen and examined at bedside. Abdominal pain. Pt is demented and cannot give good history. OBJECTIVE: Vital Signs Period Temp Pulse Resp BP Sys/Maddox Pulse Ox Last 24 Hr 97.6 F-98.3 F 63-80 18-20 147-154/62-65 Gen: mild distress HEENT: NCAT Neck: supple, no jvd Cardio: rrr, normal s1s2, systolic murmur Pulm: cta b/l Abd; soft, diffusely ttp, nondistended Laboratory Results - last 24 hr 12/16/18 12/16/18 12/16/18 05:06 05:33 05:33 WBC 7.2 RBC 3.89 Hgb 11.6 Hct 34.4 MCV 88.5 MCH 29.7 MCHC 33.6 RDW 15.1 Plt Count 153 MPV 9.7 Absolute Neuts (auto) 5.0 Neutrophils % 70.3 Lymphocytes % 20.7 D Monocytes % 7.7 Eosinophils % 0.7 D Basophils % 0.6 Nucleated RBC % 0 PT with INR INR Sodium 139 Potassium 3.2 L Chloride 102 Carbon Dioxide 24 Anion Gap 13 BUN 10.9 Creatinine 0.7 Est GFR (CKD-EPI)AfAm 89.03 Est GFR (CKD-EPI)NonAf 76.82 POC Glucometer 97 Random Glucose 95 Calcium 7.8 L Magnesium 1.8 Total Bilirubin 1.1 H AST 29 ALT 21 Alkaline Phosphatase 78 Total Protein 6.2 L Albumin 3.2 L 12/16/18 12/16/18 12/16/18 05:33 12:02 17:21 WBC RBC Hgb Hct MCV MCH MCHC RDW Plt Count MPV Absolute Neuts (auto) Neutrophils % Lymphocytes % Monocytes % Eosinophils % Basophils % Nucleated RBC % PT with INR 44.50 H INR 3.72 H Sodium Potassium Chloride Carbon Dioxide Anion Gap BUN Creatinine Est GFR (CKD-EPI)AfAm Est GFR (CKD-EPI)NonAf POC Glucometer 99 122 Random Glucose Calcium Magnesium Total Bilirubin AST ALT Alkaline Phosphatase Total Protein Albumin Active Medications Generic Name Dose Route Start Last Admin Trade Name Freq PRN Reason Stop Dose Admin Acetaminophen 650 mg 12/15/18 16:06 Tylenol - PO Q4H PRN PAIN OR FEVER Lactated Ringer's 1,000 ml in 1,000 mls @ 100 mls/hr 12/15/18 17:00 12/16/18 21:23 Lactated Ringers Solution IV Not Given ASDIR [facility] Potassium Chloride 10 meq in 100 mls @ 100 mls/hr 12/16/18 20:30 12/16/18 21: 22 Potassium Chloride 10 Meq Premix Ivpb - IVPB 12/16/18 22:29 100 mls/hr Q60M [facility] Administration Metoclopramide HCl 10 mg 12/15/18 17:15 12/16/18 17:36 Reglan Injection - IVPB 10 mg Q8H [facility] Administration Ondansetron HCl 4 mg 12/15/18 17:12 12/16/18 21:10 Zofran Injection IVPB 4 mg Q4H PRN Administration NAUSEA AND/OR VOMITING Pantoprazole Sodium 40 mg 12/16/18 10:00 12/16/18 09:10 Protonix Iv IVPUSH 40 mg DAILY [facility] Administration Warfarin Sodium 3 mg 12/16/18 18:00 Coumadin - PO DAILY@1800 [facility] ASSESSMENT/PLAN: 88 y/o F with PMHx of 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 Arreguin) consulted, appreciate rec's. Likely cause rivastigmine patch #Prolonged QT -QTc 519 on EKG -Avoid QT prolonging agents; Will hold home Dose Psych meds and Zofran -Serial EKGs -Psych (Dr. Gordillo) Consulted for med recommendations in the setting of Prolonged QT Recs Buspar #CVA on Warfarin -Daughter says patient is currently on 3mg warfarin, unable to confirm dose with pharmacy, will need to call Dr. Sales's office tmrw for accurate dose -Daily INR Checks -Will give 3mg Warfarin x1 tonight #Hypokalemia -Replete PRN Visit type - Emergency Visit Emergency Visit: No - New Patient This patient is new to me today: No - Critical Care Critical Care patient: No ATTENDING PHYSICIAN STATEMENT I saw and evaluated the patient. I reviewed the resident's note and discussed the case with the resident. I agree with the resident's findings and plan as documented. SUBJECTIVE: OBJECTIVE: ASSESSMENT AND PLAN:
[2018-12-17] MEDS: KCL 10 MEQ IVPB 10 MEQ/100 ML INFUS.BAG IVPB SCH (01:06)
[2018-12-17] MEDS ORDERED: POTASSIUM CHLORIDE TABS 20 MEQ TABLET.ER (FP) PO ONE (01:08)
[2018-12-17] MEDS: METOCLOPRAMIDE HCL INJECTION 10 MG/2 ML VIAL IVPB SCH ×3 (01:17→17:15)
[2018-12-17 07:06] LABS: HEMATOCRIT 34.5 % (32.4-45.2); HEMOGLOBIN 11.5 GM/dL (10.7-15.3); MCH 29.7 pg (25.7-33.7); MCHC 33.4 g/dl (32.0-36.0); MEAN CELL VOLUME 89.1 fl (80-96); MEAN PLT VOLUME 9.4 fl (7.5-11.1); PLATELET COUNT 150 K/MM3 (134-434); RBC 3.88 M/mm3 (3.60-5.2); RDW 14.9 % (11.6-15.6)
[2018-12-17 07:11] LABS: INR 3.56 (0.83-1.09); PROTHROMBIN TIME (PATIENT) 42.5 SEC (9.7-13.0)
[2018-12-17 07:13] LABS: ACTIVATED PTT 45.7 SECONDS (25.2-36.5)
[2018-12-17 07:21] LABS: BLOOD UREA NITROGEN 7.9 mg/dL (7-18); CALCIUM 8.1 mg/dL (8.5-10.1); CREATININE 0.8 mg/dL (0.55-1.3); POTASSIUM 4.2 mmol/L (3.5-5.1)
--- NOTE | 2018-12-17 07:50 | PN ---
Progress Note, Physician History of Present Illness: GI FOLLOW UP NOTE Patient evaluated and case discussed wit Dr Arreguin Patient states her abdominal pain is better and is feeling less nauseas. HIDA scan shows no acute evidence of cholecystitis. Denies rectal bleeding, blood in stool, or melena. - Current Medication List Current Medications: Active Medications Acetaminophen (Tylenol -) 650 mg PO Q4H PRN PRN Reason: PAIN OR FEVER Lactated Ringer's (Lactated Ringers Solution) 1,000 ml in 1,000 mls @ 100 mls/ hr IV ASDIR [facility] Last Admin: 12/16/18 21:23 Dose: Not Given Metoclopramide HCl (Reglan Injection -) 10 mg IVPB Q8H [facility] Last Admin: 12/17/18 01:17 Dose: Not Given Ondansetron HCl (Zofran Injection) 4 mg IVPB Q4H PRN PRN Reason: NAUSEA AND/OR VOMITING Last Admin: 12/16/18 21:10 Dose: 4 mg Pantoprazole Sodium (Protonix Iv) 40 mg IVPUSH DAILY [facility] Last Admin: 12/16/18 09:10 Dose: 40 mg Warfarin Sodium (Coumadin -) 3 mg PO DAILY@1800 [facility] - Objective Vital Signs: Vital Signs Temperature 98.3 F 12/17/18 04:00 Pulse Rate 61 12/17/18 04:00 Respiratory Rate 20 12/17/18 04:00 Blood Pressure 133/52 L 12/17/18 04:00 O2 Sat by Pulse Oximetry (%) 97 12/16/18 21:00 Constitutional: Yes: No Distress, Calm Eyes: Yes: Conjunctiva Clear HENT: Yes: Atraumatic Cardiovascular: Yes: Regular Rate and Rhythm Respiratory: Yes: Regular, CTA Bilaterally Gastrointestinal: Yes: Normal Bowel Sounds, Soft Neurological: Yes: Alert Psychiatric: Yes: Alert Labs: CBC, BMP 12/17/18 05:30 INR, PTT INR 3.56 (0.83-1.09) H 12/17/18 05:30 Problem List - Problems (1) Abdominal pain Assessment/Plan: R> US shows dilated gallbladder >HIDA scan normal with no evidence of acute cholecystitis >continue Reglan and Pantoprazole >clear liquid diet >H. pylori results pending Code(s): R10.9 - UNSPECIFIED ABDOMINAL PAIN (2) Loose stools Assessment/Plan: >collect stool for C-diff, C+S, Calpopectin Code(s): R19.5 - OTHER FECAL ABNORMALITIES
[2018-12-17] MEDS ORDERED: PT OWN MED DRAWER 7, Y5N ONE (09:53)
[2018-12-17] MEDS: LACTATED RINGERS SOLUTION 1,000 ML/1,000 ML INFUS.BAG IV SCH ×2 (09:59→18:06)
[2018-12-17] MEDS: PANTOPRAZOLE SODIUM 40 MG VIAL IVPUSH SCH (10:03)
--- NOTE | 2018-12-17 13:18 | PN ---
Teaching Attending Note Name of Resident: Florin Hunter ATTENDING PHYSICIAN STATEMENT I saw and evaluated the patient. I reviewed the resident's note and discussed the case with the resident. I agree with the resident's findings and plan as documented. INR improved today; pending discussion with Dr. Trinidad. No further issues noted with nausea/vomitting. Patch removed. No further nausea/vomiting/ diarrhea documented per nursing or patient. HIDA reviewed and is negative. Clear for DC per medicine perspective. She can continue her buspar at home; will hold seroquel at home, etc. given QTC and she should follouwp with PCP. PT consulted. VS, labs, imaging reviewed NAD, AAO, resting in bed NC AT EOMI PERRLA Benign abdominal exam A/P: -Nausea and vomiting (Followup HIDA, H. pylori) -Hx DM (not uncontrolled making gastroparesis less likely) -Prolonged QTc on psych meds (Consulted Dr. Gordillo to make any adjustments; pending. Recheck EKG in AM) -Hx HTN -Hx HLD -Hx CVA -Hx Dementia with behavioral distrubance -Hx -Hx Hypothyroidism -S/P IVC Filter -S/P TAVR on warfarin, slightly ST-INR (Consulting pharmacy for warfarin dosing and confirming with her home emds) -Presumed vertigo (Was seen by Dr. Trinidad and placed on meclezine in the past)
[2018-12-17 15:53] VITALS: BP 149/64; PULSE 72; TEMP 98.4
== END 2018-12-17 19:20 | disposition home or self-care (01) | DRG 392 ==
LOC: JER 00:32 → JERBED 13:10 → J8W 15:30
PROVIDERS: ADMIT Internal Medicine; ATTEND Internal Medicine
DX: R11.2 Nausea with vomiting, unspecified (principal); R42 Dizziness and giddiness; I10 Essential (primary) hypertension; E03.9 Hypothyroidism, unspecified; J45.909 Unspecified asthma, uncomplicated; F03.90 Unspecified dementia, unspecified severity, without behavioral disturbance, psychotic disturbance, mood disturbance, and anxiety; K57.90 Diverticulosis of intestine, part unspecified, without perforation or abscess without bleeding; T43.95XA Adverse effect of unspecified psychotropic drug, initial encounter; T44.1X5A Adverse effect of other parasympathomimetics [cholinergics], initial encounter; F41.8 Other specified anxiety disorders; E11.43 Type 2 diabetes mellitus with diabetic autonomic (poly)neuropathy; K31.84 Gastroparesis; K82.8 Other specified diseases of gallbladder; R19.5 Other fecal abnormalities; E78.5 Hyperlipidemia, unspecified; K59.00 Constipation, unspecified; I45.81 Long QT syndrome; I35.0 Nonrheumatic aortic (valve) stenosis; E87.6 Hypokalemia; F32.9 Major depressive disorder, single episode, unspecified; Z95.0 Presence of cardiac pacemaker; Z86.73 Personal history of transient ischemic attack (TIA), and cerebral infarction without residual deficits
CPT/HCPCS: 36415; 71045-TC-FY; 74176-TC; 74177-TC; 76705-TC; 78226-TC; 80048; 80053; 81003; 82962; 83605; 83690; 83735; 84484; 85025; 85027; 85610; 85730; 86677; 87086; 93005; 93010; 97116-GP; 99282-25; A9537; J0131; J7030